=== PATIENT | female | born 1955 | race Caucasian/White ===

== ENCOUNTER 2019-10-18 07:37 | Outpatient (CLI) | payer OTHER, SELFPAY ==
--- NOTE | 2019-10-18 | ECHO_ITS ---
Patient Info Name: Deirdre Hernandez Age: 64 years : 1955 Gender: Female Ht: 66 in Wt: 155 lbs BSA: 1.82 m2 HR: 83 bpm BP: 128 / 65 mmHg Technical Quality: Good Exam Date: 10/18/2019 8:01 AM Exam Location: [facility] Patient Status: Outpatient Admit Date: 10/18/2019 Staff Ordering Physician: Nimesh Crespo MD Trapeze Artist: Lian Marshall RDCS Attending Provider: Nimesh Crespo MD Referring Physician: Zak MARQUIS; Exam Type: CA echo doppler color flow Study Info Indications R00.2 - Palpitations Complete two-dimensional, color flow and Doppler transthoracic echocardiogram is performed. Summary 1. Left ventricular systolic function is normal, estimated at 55-60%. 2. The left ventricular diastolic function is normal. 3. There is mild aortic valve sclerosis. 4. There is mild tricuspid valve regurgitation. 5. No pulmonary hypertension, estimated pulmonary arterial systolic pressure is 35 mmHg. Left Ventricle Left ventricular chamber dimension is normal. Left ventricular systolic function is normal, estimated at 55-60%. There is no increased left ventricular wall thickness. Left ventricular septal wall motion is normal. The left ventricular diastolic function is normal. Right Ventricle Right ventricular chamber dimension is normal. Right ventricular systolic function is normal. Left Atria Left atrial chamber dimension is normal. Right Atria Right atrial chamber dimension is normal. Atrial Septum Intact interatrial septum visualized by color flow imaging. Aortic Valve The aortic valve is trileaflet. There is mild aortic valve sclerosis. There is no aortic valve stenosis. There is no aortic valve regurgitation. Pulmonic Valve The pulmonic valve is normal. There is no pulmonic valve stenosis. There is no pulmonic regurgitation. Mitral Valve The mitral valve has normal leaflets. There is no mitral valve stenosis. There is no mitral valve regurgitation. Tricuspid Valve The tricuspid valve leaflets are normal. There is no significant tricuspid valve stenosis. There is mild tricuspid valve regurgitation. No pulmonary hypertension, estimated pulmonary arterial systolic pressure is 35 mmHg. Pericardium/Pleural The pericardium appears normal. There is no pericardial effusion. Inferior Vena Cava Normal inferior vena cava with >50% collapse upon inspiration consistent with normal right atrial pressure, 5 mmHg. Aorta The aortic root size at the sinus of Valsalva is normal. The prox ascending aorta size is normal. Left Ventricular Outflow Tract Name Value Normal LVOT 2D LVOT Diameter 1.9 cm LVOT Doppler LVOT Peak Gradient 5 mmHg LVOT Mean Gradient 2 mmHg LVOT VTI 22 cm LVOT VTI/AV VTI Ratio 0.8 LVOT Stroke Volume 62 ml LVOT CO 4.6 l/min LVOT CI 2.5 l/min/m2 Pulmonic Valve
== END 2019-10-18 07:38 | disposition home or self-care (01) ==
PROVIDERS: PCP Family Medicine; Visit Provider Specialist
DX: I35.1 Nonrheumatic aortic (valve) insufficiency (principal); I36.1 Nonrheumatic tricuspid (valve) insufficiency
CPT/HCPCS: 93306

== ENCOUNTER 2023-10-22 11:25 | Observation (INO) | payer OTHER, SELFPAY ==
[2023-10-22] VITALS (12 sets, daily range): BP systolic 102–145; BP diastolic 53–90; PULSE 61–150; RESP 12–20; TEMP 36.7–36.9; O2SAT 93–100; BMI 30.1
--- NOTE | 2023-10-22 | ECHO_ITS ---
Patient Info Name: Deirdre Hernandez Age: 68 years : 1955 Gender: Female Ht: 63 in Wt: 165 lbs BSA: 1.85 m2 HR: 70 bpm BP: 114 / 64 mmHg Heart Rhythm: Sinus Rhythm Technical Quality: Good Exam Date: 10/22/2023 3:12 PM Exam Location: Echo Lab Patient Status: Inpatient Admit Date: 10/22/2023 Staff Ordering Physician: Julianne Rios DO Speed Runner: Gabriel rAriaga RDCS Attending Provider: Zita Naqvi MD Referring Physician: Gabriel LARA; Exam Type: CA echo doppler color flow Study Info Indications - afib new onset Complete two-dimensional, color flow and Doppler transthoracic echocardiogram is performed. Summary 1. Left ventricular chamber dimension is normal. 2. Left ventricular systolic function is normal, estimated at 60-65%. 3. The left ventricular diastolic function is grade I diastolic dysfunction. 4. Right ventricular chamber dimension is mildly enlarged. 5. Right ventricular systolic function is normal. 6. Right atrial chamber dimension is mildly enlarged. 7. There is mild tricuspid valve regurgitation. Left Ventricle Left ventricular chamber dimension is normal. Left ventricular systolic function is normal, estimated at 60-65%. There is no increased left ventricular wall thickness. The left ventricular diastolic function is grade I diastolic dysfunction. Right Ventricle Right ventricular chamber dimension is mildly enlarged. Right ventricular systolic function is normal. Left Atria Left atrial chamber dimension is normal. Right Atria Right atrial chamber dimension is mildly enlarged. Atrial Septum Intact interatrial septum visualized by color flow imaging. Aortic Valve The aortic valve is probable trileaflet. There is no aortic valve stenosis. There is no aortic valve regurgitation. Pulmonic Valve The pulmonic valve is not well visualized. There is trace pulmonic regurgitation. Mitral Valve There is trace mitral valve regurgitation. Tricuspid Valve There is mild tricuspid valve regurgitation. Pericardium/Pleural There is no pericardial effusion. Inferior Vena Cava Normal inferior vena cava with >50% collapse upon inspiration consistent with normal right atrial pressure, 3 mmHg. Aorta The aortic root size at the sinus of Valsalva is normal. Left Ventricular Outflow Tract Name Value Normal LVOT 2D LVOT Diameter 1.9 cm LVOT Doppler LVOT Peak Gradient 5 mmHg LVOT Mean Gradient 3 mmHg LVOT VTI 23 cm LVOT VTI/AV VTI Ratio 0.8 LVOT Stroke Volume 66 ml LVOT CO 4.3 l/min LVOT CI 2.3 l/min/m2 Pulmonic Valve Name Value Normal PV Doppler PV Peak Gradient 3 mmHg PV Regurgitation Doppler NV Pe
--- NOTE | ~2023-10-22 | XR_ITS ---
EXAMINATION: XR chest 2V 10/22/2023 12:18 INDICATION: Heart palpitations for 2 days PROCEDURE: Two-view chest COMPARISON: No prior studies for comparison. FINDINGS: The lungs are clear. The lungs are hyperinflated which is consistent with, but not diagnost ic of chronic obstructive pulmonary disease. The cardiomediastinal silhouette is within normal limits . There are no pleural effusions. There is no pneumothorax suspected. IMPRESSION: 1: NO ACUTE CARDIOPULMONARY DISEASE. Reviewed, dictated and finalized at location B.
--- NOTE | 2023-10-22 11:29 | ECG_ITS ---
Test Date: 2023-10-22 11:34:17 Measurements Intervals [place] Rate: 136 P: 0 MT: 0 QRS: 27 QRSD: 79 T: 46 QT: 291 QTc: 438 Interpretive Statements ATRIAL FIBRILLATION WITH RAPID VENTRICULAR RESPONSE BORDERLINE ST ABNORMALITY- ANTEROLAT/HIGH LAT LEADS BASELINE ARTIFACT- II, III, AVR, AVF ABNORMAL ECG No previous ECG available for comparison Electronically Signed On 10-22-2023 13:12:15 CDT by Silvino Hernandez D.O.
[2023-10-22 11:53] LABS: Basophils Absolute Auto 0.1 K/mm3 (0.0-0.1); Basophils Percent Auto 0.6 % (0.2-1.2); Eosinophils Absolute Auto 0.1 K/mm3 (0-0.3); Eosinophils Percent Auto 1.6 % (0-4.4); Hemoglobin 14.6 g/dL (12.0-15.0); Immature Granulocyte Absolute 0.02 K/mm3 (0.00-0.031); Immature Granulocyte Percent A 0.3 % (0-0.5); Lymphocytes Absolute Auto 3.48 K/mm3 (0.9-3.2); Lymphocytes Percent Auto 43.6 % (18.3-44.2); Mean Corpuscular HGB Conc 33.2 g/dl (32-36); Mean Corpuscular Hemoglobin 29.6 pg (26-34); Mean Corpuscular Volume 89.1 fl (80-100); Mean Platelet Volume 8.9 fl (7.4-10.4); Monocytes Absolute Auto 0.6 K/mm3 (0.1-0.6); Monocytes Percent Auto 7.3 % (2.6-8.5); Neutrophils Absolute Auto 3.7 K/mm3 (1.3-6.7); Neutrophils Percent Auto 46.6 % (45.5-73.1); Platelet Count Result 307 k/mm3 (150-375); Red Blood Count 4.94 M/mm3 (4.2-5.4); Red Cell Distribution Width 13.4 % (11.5-14.5)
[2023-10-22 12:03] LABS: Alanine Aminotransferase 18 U/L (6-35); Albumin Level 4.4 g/dL (3.5-5.1); Alkaline Phosphatase 54 U/L (38-126); Anion Gap 12 mmol/L (4-12); Aspartate Amino Transferase 28 U/L (14-36); Bilirubin,Total 0.5 mg/dL (0.2-1.3); Blood Urea Nitrogen 16 mg/dL (7-17); Calcium 9.7 mg/dL (8.4-10.2); Carbon Dioxide 26 mmol/L (22-30); Chloride 102 mmol/L (98-107); Estimated CRCL calculation 62 ml/min; Estimated Glomerular Filt Rate > 60; Glucose 98 mg/dL (65-110); Lipase 117 U/L (23-300); Potassium 3.8 mmol/L (3.4-5.0); Sodium 140 mmol/L (137-145)
--- NOTE | 2023-10-22 12:06 | ED.ARRPALP ---
HPI - Arrhythmia/Palpitations General Chief Complaint: Arrhythmia/Palpitations Stated Complaint: heart palpitations x 1 week Time Seen by Provider: 10/22/23 11:37 History of Present Illness HPI narrative: Pt presents with intermittent palpaitaions for the last few days. Pt has had these off and on for years and has been on Holter monitors and has seen Dr Vazquez but never saw anything abnormal. Pt says the palpitations have been more constant the last few days. Pt denies CP or SOB. Pt has no documented history of a fib. Related Data Home Medications Medication Instructions Recorded Confirmed acetaminophen 500 mg tablet 1,000 mg PO Q6H PRN Pain (Scale 10/22/23 10/22/23 (Acetaminophen Extra Strength) Score 1-3) aspirin 81 mg chewable tablet 81 mg PO DAILY 10/22/23 10/22/23 ibuprofen 200 mg tablet 400 mg PO Q6H PRN Pain (Scale 10/22/23 10/22/23 Score 1-3) lidocaine 5 % topical patch 1 patch DAILY 10/22/23 10/22/23 omega-3 fatty acids PO 10/22/23 Allergies Allergy/AdvReac Type Severity Reaction Status Date / Time codeine AdvReac Mild NAUSEA Verified 10/22/23 12:50 Review of Systems Review of Systems: All systems reviewed & are unremarkable except as noted in HPI and below PMFSH Family History Family History (Updated 10/22/23 @ 16:31 by Cynthia Eddy RN) Father Heart attack Social History Social History Smoking status: Never smoker Alcohol intake: never Substance use: never Do You Feel Safe in your Home?: Yes Lack of Transportation: No Lack of Food: Never True Current Housing: I Have Housing Concerned About Future Housing: No Difficulty Paying Gas/Electric Bills: No Difficulty Paying for Meds: No Currently Unemployed: No Education: Bachelor's Degree Difficulty w/ Childcare or Family Care: No Spiritual care concerns: No Exam Const: General: healthy appearing, no acute distress and alert Nutritional Appearance: well nourished Orientation/consciousness: patient oriented x3 Limitations: no limitations HENMT: Head: normal to inspection Resp: Effort & Inspection: normal respiratory effort Auscultation: clear to auscultation bilaterally Cardio: Rate: tachycardic Rhythm: abnormal rhythm Skin: General skin exam: normal color Rashes: no rashes Wounds: no wounds Neuro: General: patient oriented x3, moves all extremities, no meningeal signs, no focal motor deficits and CN's II-XI intact bilaterally Speech: normal speech Extrem: General: normal to inspection, no clubbing, cyanosis or edema and no pedal edema Psych: Mental Status: mental status grossly normal Affect: normal affect Attitude: cooperative Course Vital Signs Vital signs: Vital Signs Temperature 98.4 F 10/22/23 11:30 Pulse Rate 146 H 10/22/23 11:30 Respiratory Rate 20 10/22/23 11:30 Blood Pressure 145/90 H 10/22/23 11:30 Pulse Oximetry 96 10/22/23 11:30 Oxygen Delivery Room Air 10/22/23 11:30 Temperature 98.1 F 10/22/23 16:00 Pulse Rate 61 10/22/23 16:00 Respiratory Rate 12 10/22/23 16:00 Blood Pressure 118/82 10/22/23 16:00 Pulse Oximetry 96 10/22/23 16:00 Oxygen Delivery Room Air 10/22/23 11:30 MDM - Arrhythmia/Palpitations MDM Narrative Medical decision making narrative: Pt presents with intermittent palpitations for years but more persistent last few days. Pt denies CP. Pt in A fib with rvr will treat rate with cardizem and check trop and labs and admit will give dose of lovenox here as well. Pt rate slowed. discussed with Estefani Keating agrees to admit to IMU. Pt converted to nsr. called Estefani and said to move to med tele and stop cardizzem drip and give po cardizem Differential Diagnosis Differential diagnosis: Likely palpitations, anxiety, artial fibrillation, artial flutter, ventricular premature beats and supraventricular tachycardia Lab Data 10/22/23 11:39 10/22/23 11:39 Labs: Lab Results 10/22/23
[2023-10-22 12:07] LABS: INR 0.9; Prothrombin Time 12.5 Seconds (11.1-14.7)
[2023-10-22 12:08] LABS: Partial Thromboplastin Time 27.4 Seconds (22.3-36.8)
[2023-10-22 12:15] LABS: Troponin I < 0.012 ng/mL (0.000-0.034)
[2023-10-22] MEDS: dilTIAZem 100 MG/100 ML 100 MG/100 ML BAG IV CONT (12:20)
[2023-10-22] MEDS: dilTIAZem HCl INJ 25 MG/5 ML VIAL 20 MG IV PUSH (12:21)
[2023-10-22] MEDS: ENOXAPARIN 80 MG/0.8 ML SYRINGE SUB-Q (12:21)
[2023-10-22] MEDS: ASPIRIN 81 MG CHEWABLE TABLET 324 MG PO (12:21)
--- NOTE | 2023-10-22 13:08 | ECG_ITS ---
Test Date: 2023-10-22 13:16:23 Measurements Intervals [place] Rate: 72 P: 18 WI: 143 QRS: 5 QRSD: 89 T: 23 QT: 397 QTc: 435 Interpretive Statements SINUS RHYTHM VOLTAGE CRITERIA FOR LVH CONSIDER INFERIOR INFARCT, AGE INDETERMINATE ABNORMAL ECG Compared to ECG 10/22/2023 11:34:17 Atrial fibrillation no longer present Electronically Signed On 10-22-2023 13:29:34 CDT by Silvino Hernandez D.O.
[2023-10-22 14:50] LABS: Troponin I < 0.012 ng/mL (0.000-0.034)
--- NOTE | 2023-10-22 16:11 | ADMGEN ---
This patient, Dierdre Hernandez, was admitted to Medical Room 256-. Patient/family oriented to hospital policies and general routines including ID bracelet, bed and alarms, visiting hours, pain management, procedures, bathroom and other care routines, personal items, smoking policy, room service/diet, and visiting hours. Information on how to activate the Rapid Response Team has been discussed. Patient/Family are encouraged to report perceived risks to care and to ask questions if they do not understand what they are told or what they should do.
[2023-10-22] MEDS: dilTIAZem HCL 30 MG TABLET PO ×2 (16:18→21:05)
--- NOTE | 2023-10-22 16:41 | PM.IMHP ---
H&P: HPI History of Present Illness Date/Time: 10/22/23 16:40 Chief Complaint: Palpitations. Narrative: This is a very pleasant and previously healthy 68-year-old female who presented to the emergency department via private vehicle for evaluation of palpitations. The patient provides the following history. She reports intermittent palpitations for at least 4 years and she has worn event monitors which were unrevealing. These episodes have become increasingly more frequent the last several days and they are lasting longer and longer each time before resolving without intervention. Yesterday she developed sweats with the palpitations and today she had felt a bit short of breath with exertion. She does not see a pattern as to when these episodes occur and denies that they occur at nighttime. She denies caffeine and alcohol use. She has no known history of thyroid disease or sleep apnea. She has had stress tests before (her father from an [place] at 41) which were normal. However they have all been unremarkable. She denies syncope, near syncope, exertional chest pain, pleuritic pain, orthopnea, paroxysmal nocturnal dyspnea, edema, nausea, and vomiting. No recent illnesses. In the ED: She was and rapid atrial fibrillation on arrival with rates in the 130s. EKG showed borderline ST T-wave abnormalities in the anterolateral and high lateral leads. She was started on a diltiazem drip and converted to a normal sinus rhythm. She was given a dose of p.o. diltiazem and is being admitted overnight for close monitoring and Cardiology consultation. Review of Systems Review of Systems: 12 systems were reviewed and are negative except for as per HPI. [facility] Past Medical History Medical History (Updated 10/22/23 @ 22:39 by Estefani Fitzgerald PA-C) COVID-19 Surgical History Surgical History (Updated 10/22/23 @ 22:39 by Estefani Fitzgerald PA-C) History of section History of tonsillectomy Family History Family History (Updated 10/22/23 @ 22:39 by Estefani Fitzgerald PA-C) Father , at the age of 41 from an [place]. Myocardial infarction Social History Social History (Updated 10/22/23 @ 22:40 by Estefani Fitzgerald PA-C) Social History: Surrogate medical decision maker: Ruben Hernandez, son. Code status: Full code. Smoking status: Never smoker Alcohol intake: never Substance use: never Do You Feel Safe in your Home?: Yes Lack of Transportation: No Lack of Food: Never True Current Housing: I Have Housing Concerned About Future Housing: No Difficulty Paying Gas/Electric Bills: No Difficulty Paying for Meds: No Currently Unemployed: No Education: Bachelor's Degree Difficulty w/ Childcare or Family Care: No Additional living arrangements comments: The patient lives in [place]. She has 2 daughters and 1 son who are healthy. 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 Spiritual care concerns: No Meds Home Medications and Allergies Home Medications Medication Instructions Recorded Confirmed Type acetaminophen 500 mg tablet 1,000 mg PO Q6H PRN Pain (Scale 10/22/23 10/22/23 History (Acetaminophen Extra Strength) Score 1-3) aspirin 81 mg chewable tablet 81 mg PO DAILY 10/22/23 10/22/23 History ibuprofen 200 mg tablet 400 mg PO Q6H PRN Pain (Scale 10/22/23 10/22/23 History Score 1-3) lidocaine 5 % topical patch 1 patch DAILY 10/22/23 10/22/23 History omega-3 fatty acids PO 10/22/23 History Allergies Allergy/AdvReac Type Severity Reaction Status Date / Time codeine AdvReac Mild NAUSEA Verified 10/22/23 12:50 Vital Signs Vital Signs - 24 hr 10/22/23 11:30 10/22/23 11:30 10/22/23 12:20 Temperature 98.4 F Pulse Rate 146 H 150 H Respiratory Rate 20 Blood Pressure 145/90 H 127/72 Pulse Oximetry 96 Oxygen Delivery Room Air Room Air 10/22/23 11:46 10/22/23 12:01 10/22/23 12:33 Temperature Pulse Rate 135 H 124 H 96 Respiratory Rate 2
[2023-10-22 17:39] LABS: Troponin I < 0.012 ng/mL (0.000-0.034)
[2023-10-23 00:04] VITALS: PULSE 65
[2023-10-23 04:00] VITALS: PULSE 66
[2023-10-23 05:42] VITALS: O2SAT 94
[2023-10-23 06:02] LABS: Anion Gap 8 mmol/L (4-12); Blood Urea Nitrogen 13 mg/dL (7-17); Calcium 9.3 mg/dL (8.4-10.2); Carbon Dioxide 27 mmol/L (22-30); Chloride 105 mmol/L (98-107); Cholesterol 209 mg/dL (0-200); Estimated CRCL calculation 56 ml/min; Estimated Glomerular Filt Rate > 60; Glucose 91 mg/dL (65-110); HDL Direct 70 mg/dL; Magnesium 2.1 mg/dL (1.6-2.3); Potassium 3.9 mmol/L (3.4-5.0); Sodium 140 mmol/L (137-145); Triglycerides 110 mg/dL (<150)
[2023-10-23] MEDS: dilTIAZem HCL 30 MG TABLET PO (06:05)
[2023-10-23 06:13] LABS: LDL Cholesterol Direct 100 mg/dL
[2023-10-23 06:24] VITALS: BP 122/64; PULSE 65; RESP 14; TEMP 36.5; O2SAT 94
--- NOTE | 2023-10-23 07:14 | PM.IMPN ---
Progress Note: A&P Assessment and Plan (1) Atrial fibrillation with rapid ventricular response: Code(s): I48.91 - Unspecified atrial fibrillation Status: Acute Assessment and Plan: Patient reports of palpitations. EKG showed A-Fib with rapid ventricular response with a rate of 136. Patient was started on a diltiazem drip and converted to normal sinus rhythm. -diltiazem 30 mg p.o. q.8 hours -vital signs reviewed -echocardiogram ordered -telemetry -ApneaLink ordered -[id number] score 2 for age and gender. Will need oral anticoagulation. -cardiology consult, recs appreciated Plan Feeding: Heart healthy diet Analgesia: Tylenol Thromboembolic prophylaxis: Lovenox Disposition: Patient presented with palpitations and was found to be in AFib with RVR. She was started on diltiazem drip which has now been discontinued as she transition to normal sinus rhythm. Cardiology has been consulted, echo has been ordered. Patient is from home anticipate her discharging back when she is medically stable. Advance Care Plan I have confirmed that the patient's Advanced Care Plan is present, code status is documented, or surrogate decision maker is listed in patient medical record.: Yes Medication Reconciliation I have utilized all available resources to obtain, update and review the patients current medications (includes all prescriptions, OTC, herbals, cannabis, and nutritional supplements).: Yes Subjective Date/time seen: 10/23/23 07:14 Interval history: This is a very pleasant and previously healthy 68-year-old female who presented to the emergency department via private vehicle for evaluation of palpitations. 10/22: Review of Systems Review of Systems: All systems reviewed & are unremarkable except as noted in HPI and below Exam Narrative: General: well appearing, appears stated age. HEENT: normocephalic, atraumatic. Mucous membranes moist. EOMI, PERRLA, bilateral sclera anicteric, no conjunctival injection. Neck supple without JVD, lymphadenopathy, or bruit. Respiratory: clear to ascultation bilaterally. No rales/rhonic/wheezes. Cardiovascular: Regular rate and rhythm, normal S1-S2 upon ascultation. No murmurs, rubs, or clicks. PMI is nondisplaced, capillary refill less than 3 second. Abdomen: Soft, round, no pulsatile masses, nondistended and nontender. No rebound, no guarding. No CVA tenderness, no hepatosplenomegaly. Bowel sounds present to all four quadrants. No high pitch or tinkling sounds, resonant to percussion. Extremities: No cyanosis, clubbing, or edema present. Pulses are palpable 2/2. Active ROM to all four extremities. Neuro: Alert and orientated x 4. PERRLA. Cranial nerves 2-12 intact without focal deficit. Skin: Warm, dry, and intact, without rash, erythema, or lesion. Lines: Incisions: Psych: pleasant, cooperative, normal speech, normal affect, no hallucinations, no dysarthia Objective Data Vital Signs Vital Signs: Vital Signs - 24 hr 10/22/23 11:30 10/22/23 11:30 10/22/23 12:20 Temperature 98.4 F Pulse Rate 146 H 150 H Respiratory Rate 20 Blood Pressure 145/90 H 127/72 Pulse Oximetry 96 Oxygen Delivery Room Air Room Air 10/22/23 11:46 10/22/23 12:01 10/22/23 12:33 Temperature Pulse Rate 135 H 124 H 96 Respiratory Rate 20 19 18 Blood Pressure 127/90 120/70 110/69 Pulse Oximetry 93 97 97 Oxygen Delivery 10/22/23 12:46 10/22/23 13:09 10/22/23 15:00 Temperature Pulse Rate 75 70 64 Respiratory Rate 16 18 Blood Pressure 108/58 L 114/64 107/55 L Pulse Oximetry 97 94 Oxygen Delivery 10/22/23 15:10 10/22/23 16:00 10/22/23 19:37 Temperature 98.1 F Pulse Rate 76 61 Respiratory Rate 16 12 Blood Pressure 102/53 L 118/82 Pulse Oximetry 100 96 Oxygen Delivery Room Air 10/22/23 20:40 10/22/23 20:00 10/22/23 20:00 Temperature 98.2 F Pulse Rate 67 67 69 Respiratory Rate 14 14 Blood Pressure 121/56 L Pulse Ox
[2023-10-23 08:00] VITALS: PULSE 68
[2023-10-23] MEDS: LIDOCAINE 5% PATCH 1 PATCH TOPICAL (09:02)
[2023-10-23] MEDS: ASPIRIN 81 MG CHEWABLE TABLET PO (09:02)
--- NOTE | 2023-10-23 09:57 | PM.CNCAR ---
Assessment and Plan Assessment and plan (1) Atrial fibrillation with rapid ventricular response: Code(s): I48.91 - Unspecified atrial fibrillation Status: Acute Assessment and Plan: TSH level is normal. Echocardiogram with preserved LVEF. Continue with PO Diltiazem. Recommend long-acting Diltiazem 120mg once daily upon discharge. [id number] is 2 for age and gender. As [id number] is not 3 yet, she does not need anticoagulation for stroke risk reduction. She will need to start anticoagulation once her [id number] turns 3. Recommend outpatient sleep study. Further discussions regarding long-term management of her paroxysmal atrial fibrillation to be done outpatient with her primary Director Sports, Dr. Crespo. She has an appointment to see him next week. Okay to discharge home from my standpoint. Recommendations and plan discussed with Hospitalist. History of Present Illness History of Present Illness Consult date/time: 10/23/23 09:57 Requesting physician: Estefani Fitzgerald PA-C Consult reason: atrial fibrillation Reason For Visit: A Fib RVR Narrative: We are consulted for atrial fibrillation with RVR. This is a 68 year old female patient of Dr. Crespo's who has been having palpitation for the past few days. Had palpitations on Friday, but then felt better in the evening, however, had recurrence on Friday, which prompted her to come to the ED. In the ED, initial EKG showed atrial fibrillation with RVR. She was given Diltiazem 20mg IV and subsequently returned to normal sinus rhythm. Her symptoms have resolved since being in normal sinus rhythm. She was admitted for further management. This morning, she is feeling well and remains in sinus rhythm. She was started on PO Diltazem on admission. Review of Systems Review of Systems: All systems reviewed & are unremarkable except as noted in HPI and below (HPI) [facility] Past Medical History Medical History COVID-19 Surgical History Surgical History History of section History of tonsillectomy Family History Family History Father , at the age of 41 from an [place]. Myocardial infarction Social History Social History Social History: Surrogate medical decision maker: Ruben Hernandez, son. Code status: Full code. Smoking status: Never smoker Alcohol intake: never Substance use: never Do You Feel Safe in your Home?: Yes Lack of Transportation: No Lack of Food: Never True Current Housing: I Have Housing Concerned About Future Housing: No Difficulty Paying Gas/Electric Bills: No Difficulty Paying for Meds: No Currently Unemployed: No Education: Bachelor's Degree Difficulty w/ Childcare or Family Care: No Additional living arrangements comments: The patient lives in [place]. She has 2 daughters and 1 son who are healthy. 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 Spiritual care concerns: No Meds Home Medications and Allergies Home Medications Medication Instructions Recorded Confirmed Type acetaminophen 500 mg tablet 1,000 mg PO Q6H PRN Pain (Scale 10/22/23 10/22/23 History (Acetaminophen Extra Strength) Score 1-3) aspirin 81 mg chewable tablet 81 mg PO DAILY 10/22/23 10/22/23 History ibuprofen 200 mg tablet 400 mg PO Q6H PRN Pain (Scale 10/22/23 10/22/23 History Score 1-3) lidocaine 5 % topical patch 1 patch DAILY 10/22/23 10/22/23 History omega-3 fatty acids PO 10/22/23 History Allergies Allergy/AdvReac Type Severity Reaction Status Date / Time codeine AdvReac Mild NAUSEA Verified 10/22/23 12:50 Vital Signs Vital Signs - 24 hr 10/22/23 11:30 10/22/23 11:30 10/22/23 12:20 Temperature 36.9 C Pulse Rate 146 H 150 H Respiratory Rate 20 Blood Pressure
[2023-10-23 12:00] VITALS: PULSE 75
--- NOTE | 2023-10-23 12:55 | PM.DS ---
DS: Admitting Diagnosis Discharge Date 10/22 Admitting Diagnosis heart palpatations DS: Discharge Diagnosis Discharge Diagnosis (1) Atrial fibrillation with rapid ventricular response: Code(s): I48.91 - Unspecified atrial fibrillation Status: Acute Assessment and Plan: Patient reports of palpitations. EKG showed A-Fib with rapid ventricular response with a rate of 136. Patient was started on a diltiazem drip and converted to normal sinus rhythm. -diltiazem 30 mg p.o. q.8 hours -vital signs reviewed -echocardiogram ordered -telemetry -ApneaLink ordered -[id number] score 2 for age and gender. Will need oral anticoagulation. -cardiology consult, recs appreciated Plan Feeding: Heart healthy diet Analgesia: Tylenol Thromboembolic prophylaxis: Lovenox Disposition: Patient presented with palpitations and was found to be in AFib with RVR. She was started on diltiazem drip which has now been discontinued as she transition to normal sinus rhythm. Cardiology has been consulted, echo has been ordered. Patient is from home anticipate her discharging back when she is medically stable. Advance Care Plan I have confirmed that the patient's Advanced Care Plan is present, code status is documented, or surrogate decision maker is listed in patient medical record.: Yes Medication Reconciliation I have utilized all available resources to obtain, update and review the patients current medications (includes all prescriptions, OTC, herbals, cannabis, and nutritional supplements).: Yes DS: Summary Hospital Course Reason for hospitalization: atrial fibrillation Hospital Course: This is a very pleasant and previously healthy 68-year-old female who presented to the emergency department via private vehicle for evaluation of palpitations. On admission to the ER she was found to be in atrial fibrillation with the rapid ventricular response rate of 136 bpm. She was started on a diltiazem drip and rate converted. Cardiology saw her and recommended starting diltiazem 120 mg controlled release daily. Echocardiogram was reviewed. Chest x-ray was normal. She remained normal sinus rhythm on the monitor. Overall she did well and was stable to discharge home with outpatient follow-up. Time Spent with Patient Time attestation: Total time spent providing and/or coordinating discharge services:54 Exam Narrative: General: well appearing, appears stated age. HEENT: normocephalic, atraumatic. Mucous membranes moist. EOMI, PERRLA, bilateral sclera anicteric, no conjunctival injection. Neck supple without JVD, lymphadenopathy, or bruit. Respiratory: clear to auscultation bilaterally. No rales/rhonic/wheezes. Cardiovascular: Regular rate and rhythm, normal S1-S2 upon auscultation. No murmurs, rubs, or clicks. PMI is nondisplaced, capillary refill less than 3 second. Abdomen: Soft, round, no pulsatile masses, nondistended and nontender. No rebound, no guarding. No CVA tenderness, no hepatosplenomegaly. Bowel sounds present to all four quadrants. No high pitch or tinkling sounds, resonant to percussion. Extremities: No cyanosis, clubbing, or edema present. Pulses are palpable 2/2. Active ROM to all four extremities. Neuro: Alert and orientated x 4. PERRLA. Cranial nerves 2-12 intact without focal deficit. Skin: Warm, dry, and intact, without rash, erythema, or lesion. Lines: Incisions: Psych: pleasant, cooperative, normal speech, normal affect, no hallucinations, no dysarthria DS: Data Data Completed and Pending Labs on day of discharge: Labs from last 24 hours 10/23/23 10/22/23 10/22/23 05:41 17:13 14:20 Sodium 140 Potassium 3.9 Chloride 105 Carbon Dioxide 27 Anion Gap 8 BUN 13 Creatinine 0.80 Estim Creat Clear Calc 56 Estimated GFR > 60 Glucose 91 Calcium 9.3 Magnesium 2.1 Troponin I < 0.012 < 0.012 Triglycerides 110 Cholesterol 209 H LDL Cholesterol D
[2023-10-23] MEDS: dilTIAZem HCL CD 120 MG CAP.24HR PO (13:11)
== END 2023-10-23 13:30 | disposition home or self-care (01) ==
LOC: ANHED 12:08 → ANH2MED 15:48
PROVIDERS: Physician Assistant; Admitting Provider General Practice; Emergency Provider Emergency Medicine; PCP Family Medicine; Visit Provider Nurse Practitioner Acute Care
DX: I48.91 Unspecified atrial fibrillation (principal); Z79.82 Long term (current) use of aspirin
CPT/HCPCS: 36415; 71046; 80048; 80053; 80061; 83690; 83735; 83880; 84443; 84484; 85025; 85610; 85730; 93005; 93306; 94762; 96365; 96366; 96372; 96374; 99284; 99285; A9270; G0378; J1650

== ENCOUNTER 2023-10-23 19:36 | Emergency (ER) | payer OTHER, SELFPAY ==
[2023-10-23] VITALS (10 sets, daily range): BP systolic 100–130; BP diastolic 52–74; PULSE 75–132; RESP 13–21; TEMP 36.9; O2SAT 95–97
--- NOTE | ~2023-10-23 | XR_ITS ---
XR chest 2V DATE: 10/23/2023 20:02 INDICATION: Palpitations TECHNIQUE: PA and lateral views COMPARISON: 10/22/2023 PA and lateral chest FINDINGS: Borderline heart size. No hilar or mediastinal enlargement. Moderate bilateral hyperinflation suggesting obstructive airways disease. No pulmonary infiltrate or consolidation, pleural effusion or pulmonary vascular congestion or pneumo thorax. Diffuse osteopenia. Kyphodextroscoliosis of the thoracic spine. IMPRESSION: Bilateral hyperinflation; otherwise no active pulmonary disease Borderline heart size Reviewed, dictated and finalized at location J.
--- NOTE | 2023-10-23 19:40 | ECG_ITS ---
Test Date: 2023-10-23 19:48:01 Measurements Intervals [place] Rate: 99 P: 0 IN: 0 QRS: 5 QRSD: 84 T: 25 QT: 335 QTc: 431 Interpretive Statements ATRIAL FIBRILLATION VOLTAGE CRITERIA FOR LVH CONSIDER INFERIOR INFARCT, AGE INDETERMINATE ABNORMAL ECG Compared to ECG 10/22/2023 13:16:23 ATRIAL FIBRILLATION NOW PRESENT Electronically Signed On 10-23-2023 20:20:08 CDT by Silvino Hernandez D.O.
[2023-10-23 20:00] LABS: Basophils Absolute Auto 0.1 K/mm3 (0.0-0.1); Basophils Percent Auto 0.9 % (0.2-1.2); Eosinophils Absolute Auto 0.2 K/mm3 (0-0.3); Eosinophils Percent Auto 2.6 % (0-4.4); Hematocrit 43.5 % (37.0-47.0); Hemoglobin 14.6 g/dL (12.0-15.0); Immature Granulocyte Absolute 0.02 K/mm3 (0.00-0.031); Immature Granulocyte Percent A 0.3 % (0-0.5); Lymphocytes Absolute Auto 2.09 K/mm3 (0.9-3.2); Lymphocytes Percent Auto 31.4 % (18.3-44.2); Mean Corpuscular HGB Conc 33.6 g/dl (32-36); Mean Corpuscular Volume 89.3 fl (80-100); Mean Platelet Volume 8.8 fl (7.4-10.4); Monocytes Absolute Auto 0.6 K/mm3 (0.1-0.6); Monocytes Percent Auto 8.4 % (2.6-8.5); Neutrophils Absolute Auto 3.8 K/mm3 (1.3-6.7); Neutrophils Percent Auto 56.4 % (45.5-73.1); Platelet Count Result 284 k/mm3 (150-375); Red Blood Count 4.87 M/mm3 (4.2-5.4); Red Cell Distribution Width 13.4 % (11.5-14.5); White Blood Count 6.7 K/mm3 (4.5-10.0)
[2023-10-23 20:08] LABS: INR 0.9; Prothrombin Time 12.7 Seconds (11.1-14.7)
[2023-10-23 20:09] LABS: Partial Thromboplastin Time 26.3 Seconds (22.3-36.8)
--- NOTE | 2023-10-23 20:26 | ED.ARRPALP ---
HPI - Arrhythmia/Palpitations General Chief Complaint: Arrhythmia/Palpitations Stated Complaint: AFIB-RVR Time Seen by Provider: 10/23/23 20:09 Source: patient and EMS Mode of arrival: EMS Limitations: no limitations History of Present Illness HPI narrative: Patient presents with report of palpitations. They have been occurring for 4 years intermittently and she has been following with Dr. Zavaleta but symptoms occurred yesterday and she was found to be in atrial fibrillation with rapid ventricular response at this hospital for which she was admitted. This was a new diagnosis of atrial fibrillation. She was discharged from the hospital today with a new diagnosis of atrial fibrillation and started on diltiazem. She states she was not placed on anticoagulation because she was a risk score of 2 and was told anticoagulation was not indicated unless she was risk score of 3. She was given a dose of her diltiazem at approximately noon just prior to discharge and told she could wait to take her next dose tomorrow morning. 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 She admits that she did not call the recycle driver to see if she could take a dose early. Rather, when she was experiencing palpitations but did not richard and that were associated with mild shortness of breath she called EMS. She denies any chest pain or lower extremity edema. EMS did note that she was in atrial fibrillation with rapid ventricular rate between 140 and 160 and hemodynamically stable with a blood pressure of systolic 140. Thus medical control over radio did advise that 5 mg metoprolol could be given slow push IV over 2 minutes. She feels nauseated and somewhat weak. Related Data Home Medications Medication Instructions Recorded Confirmed acetaminophen 500 mg tablet 1,000 mg PO Q6H PRN Pain (Scale 10/22/23 10/22/23 (Acetaminophen Extra Strength) Score 1-3) aspirin 81 mg chewable tablet 81 mg PO DAILY 10/22/23 10/22/23 ibuprofen 200 mg tablet 400 mg PO Q6H PRN Pain (Scale 10/22/23 10/22/23 Score 1-3) lidocaine 5 % topical patch 1 patch DAILY 10/22/23 10/22/23 omega-3 fatty acids PO 10/22/23 Allergies Allergy/AdvReac Type Severity Reaction Status Date / Time codeine AdvReac Mild NAUSEA Verified 10/22/23 12:50 [facility] Past Medical History Medical History (Updated 10/24/23 @ 00:00 by Background Daemon) Atrial fibrillation Dx 10/22/23 COVID-19 Surgical History Surgical History History of section History of tonsillectomy Family History Family History Father , at the age of 41 from an [place]. Myocardial infarction Social History Social History Social History: Surrogate medical decision maker: Ruben Hernandez, son. Code status: Full code. Smoking status: Never smoker Alcohol intake: never Substance use: never Do You Feel Safe in your Home?: Yes Lack of Transportation: No Lack of Food: Never True Current Housing: I Have Housing Concerned About Future Housing: No Difficulty Paying Gas/Electric Bills: No Difficulty Paying for Meds: No Currently Unemployed: No Education: Bachelor's Degree Difficulty w/ Childcare or Family Care: No Additional living arrangements comments: The patient lives in [place]. She has 2 daughters and 1 son who are healthy. 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 Spiritual care concerns: No Exam Narrative: GENERAL: Well-appearing, well-nourished, and in no acute distress. HEAD: Normocephalic, atraumatic. EYES: Non injected, non icteric ENT: Nares clear, no rhinorrhea or epistaxis. NECK: Supple. CHEST: Speaking in full sentences. No respiratory distress. Lungs clear to auscultation bilaterally. HEART: Irregularly IRRegular rate and rhythm, palpable at left radial and on auscultation. ABDOM
[2023-10-23 20:30] LABS: Albumin Level 4.4 g/dL (3.5-5.1); Alkaline Phosphatase 52 U/L (38-126); Aspartate Amino Transferase 27 U/L (14-36); Bilirubin,Total 0.4 mg/dL (0.2-1.3); Blood Urea Nitrogen 18 mg/dL (7-17); Carbon Dioxide 25 mmol/L (22-30); Estimated CRCL calculation 63 ml/min; Estimated Glomerular Filt Rate > 60; Glucose 126 mg/dL (65-110)
[2023-10-23 20:31] LABS: Alanine Aminotransferase 17 U/L (6-35); Anion Gap 10 mmol/L (4-12); Calcium 9.3 mg/dL (8.4-10.2); Chloride 105 mmol/L (98-107); Lipase 119 U/L (23-300); Potassium 3.6 mmol/L (3.4-5.0); Sodium 140 mmol/L (137-145)
[2023-10-23 20:34] LABS: Troponin I < 0.012 ng/mL (0.000-0.034)
[2023-10-23] MEDS: dilTIAZem HCl INJ 25 MG/5 ML VIAL 20 MG IV PUSH (20:56)
[2023-10-23 21:16] LABS: NT Pro B Type Natriuretic Pept 203 pg/mL (19.9-100)
== END 2023-10-23 22:35 | disposition home or self-care (01) ==
PROVIDERS: Emergency Provider Student in an Organized Health Care Education/Training Program; PCP Family Medicine
DX: I48.91 Unspecified atrial fibrillation (principal)
CPT/HCPCS: 36415; 71046; 80053; 83690; 83735; 83880; 84484; 85025; 85610; 85730; 93005; 96374; 99284

== ENCOUNTER 2023-10-29 18:18 | Observation (INO) | payer OTHER, SELFPAY ==
[2023-10-29] VITALS (14 sets, daily range): BP systolic 84–132; BP diastolic 53–72; PULSE 78–140; RESP 16–23; TEMP 36.3–36.6; O2SAT 93–100; BMI 29.4
--- NOTE | ~2023-10-29 | XR_ITS ---
EXAMINATION: XR chest 2V DATE: 10/29/2023 19:03 INDICATION: Heart palpitations TECHNIQUE: PA and lateral views of the chest were obtained. COMPARISON: Chest radiograph dated 10/23/2023 FINDINGS: Mild hyperexpansion of the lungs. Unchanged curvilinear atelectasis/scarring at the posterior left katina ng base. No new airspace opacities, pulmonary edema, pleural effusion or pneumothorax. The cardiomedi astinal silhouette is normal. Thoracolumbar dextrocurvature with moderate spondylosis. IMPRESSION: 1. Unchanged curvilinear atelectasis/scarring at the posterior left lung base. Reviewed, dictated and finalized at location A.
--- NOTE | 2023-10-29 18:19 | ECG_ITS ---
Test Date: 2023-10-29 18:26:05 Measurements Intervals [place] Rate: 144 P: 0 NE: 0 QRS: 9 QRSD: 78 T: 32 QT: 286 QTc: 443 Interpretive Statements ATRIAL FIBRILLATION WITH RAPID VENTRICULAR RESPONSE VOLTAGE CRITERIA FOR LVH BORDERLINE ST ABNORMALITY- LATERAL LEADS BASELINE ARTIFACT- I, II, III, AVR, AVL, AVF ABNORMAL ECG Compared to ECG 10/23/2023 19:48:01 HEART RATE HAS INCREASED Electronically Signed On 10-29-2023 20:29:07 CDT by Silvino Hernandez D.O.
--- NOTE | 2023-10-29 18:44 | ED.ARRPALP ---
HPI - Arrhythmia/Palpitations General Chief Complaint: Arrhythmia/Palpitations <Silver Calderón PA-C - Last Filed: 10/29/23 23:35> Stated Complaint: heart palpitations <FELIX Odell Last Filed: 10/29/23 23:35> Time Seen by Provider: 10/29/23 18:28 <FELIX Odell Last Filed: 10/29/23 23:35> Source: patient <FELIX Odell Last Filed: 10/29/23 23:35> Mode of arrival: ambulatory <FELIX Odell Last Filed: 10/29/23 23:35> Limitations: no limitations <FELIX Odell Last Filed: 10/29/23 23:35> History of Present Illness HPI narrative: This is a 68-year-old female who presents to the ED for chief complaint of heart palpitations since around 1500 today. Patient reports she was diagnosed with atrial fibrillation last week and has scheduled follow-up with primary and Cardiology this week. States that she forgot to take her diltiazem this morning so ended up taking at around 1300. States while walking into the ER she had a little bit shortness of breath but feels fine at rest. She is still having the palpitations. Denies chest pain, dizziness, syncope, nausea, vomiting, back pain, numbness, weakness. <FELIX Odell Last Filed: 10/29/23 23:35> Related Data Home Medications: Home Medications Medication Instructions Recorded Confirmed lidocaine 5 % topical patch 1 patch transdermal DAILY 10/22/23 10/29/23 omega-3 fatty acids 1 cap PO DAILY 10/22/23 10/29/23 <FELIX Odell Last Filed: 10/29/23 23:35> Allergies/Adverse Reactions: Allergies Allergy/AdvReac Type Severity Reaction Status Date / Time codeine AdvReac Mild NAUSEA Verified 10/29/23 18:22 <FELIX Odell Last Filed: 10/29/23 23:35> Review of Systems Review of Systems: All systems as dictated in HPI <FELIX Odell Last Filed: 10/29/23 23:35> [facility] Past Medical History Medical History: Medical History (Updated 10/29/23 @ 23:35 by Silver Calderón PA-C) Atrial fibrillation Dx 10/22/23 COVID-19 <Silver Calderón PA-C - Last Filed: 10/29/23 23:35> Surgical History Surgical History: Surgical History History of section History of tonsillectomy <Silver Calderón PA-C - Last Filed: 10/29/23 23:35> Family History Family History: Family History (Updated 10/29/23 @ 23:34 by Dhruv Romero RN) Father , at the age of 41 from an [place]. Myocardial infarction Mother Pacemaker <Silver Calderón PA-C - Last Filed: 10/29/23 23:35> Social History Social History: Social History Social History: Surrogate medical decision maker: Ruben Hernandez, son. Code status: Full code. Smoking status: Never smoker Alcohol intake: never Substance use: never Do You Feel Safe in your Home?: Yes Lack of Transportation: No Lack of Food: Never True Current Housing: I Have Housing Concerned About Future Housing: No Difficulty Paying Gas/Electric Bills: No Difficulty Paying for Meds: No Currently Unemployed: No Education: Bachelor's Degree Difficulty w/ Childcare or Family Care: No Additional living arrangements comments: The patient lives in [place]. She has 2 daughters and 1 son who are healthy. 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 Spiritual care concerns: No <Silver Calderón PA-C - Last Filed: 10/29/23 23:35> Exam Narrative: GENERAL: Well-appearing, well-nourished, and in no acute distress. HEAD: Normocephalic, atraumatic. EYES: PERRLA and EOMI. ENT: Nares clear, no rhinorrhea or epistaxis. Mucous membranes moist. Oropharynx without tonsillar hypertrophy exudate or other lesions. NECK: Supple. No adenopathy or masses. CHEST: No respiratory distress. Clear to auscultation. No wheezes rales or rhonchi HEART: Regular rate and rhythm. No murmur heard.
[2023-10-29 19:03] LABS: Basophils Absolute Auto 0.1 K/mm3 (0.0-0.1); Basophils Percent Auto 0.8 % (0.2-1.2); Eosinophils Absolute Auto 0.2 K/mm3 (0-0.3); Eosinophils Percent Auto 2.1 % (0-4.4); Hematocrit 43.6 % (37.0-47.0); Hemoglobin 14.5 g/dL (12.0-15.0); Immature Granulocyte Absolute 0.03 K/mm3 (0.00-0.031); Immature Granulocyte Percent A 0.4 % (0-0.5); Lymphocytes Absolute Auto 2.12 K/mm3 (0.9-3.2); Lymphocytes Percent Auto 29.1 % (18.3-44.2); Mean Corpuscular HGB Conc 33.3 g/dl (32-36); Mean Corpuscular Hemoglobin 29.5 pg (26-34); Mean Corpuscular Volume 88.8 fl (80-100); Mean Platelet Volume 8.9 fl (7.4-10.4); Monocytes Absolute Auto 0.7 K/mm3 (0.1-0.6); Monocytes Percent Auto 9.6 % (2.6-8.5); Neutrophils Absolute Auto 4.2 K/mm3 (1.3-6.7); Platelet Count Result 298 k/mm3 (150-375); Red Blood Count 4.91 M/mm3 (4.2-5.4); Red Cell Distribution Width 13.2 % (11.5-14.5); White Blood Count 7.3 K/mm3 (4.5-10.0)
[2023-10-29] MEDS: dilTIAZem HCl INJ 25 MG/5 ML VIAL 10 MG IV PUSH (19:04)
[2023-10-29 19:13] LABS: Alanine Aminotransferase 18 U/L (6-35); Albumin Level 4.4 g/dL (3.5-5.1); Alkaline Phosphatase 57 U/L (38-126); Anion Gap 10 mmol/L (4-12); Aspartate Amino Transferase 25 U/L (14-36); Bilirubin,Total 0.4 mg/dL (0.2-1.3); Blood Urea Nitrogen 13 mg/dL (7-17); Calcium 9.1 mg/dL (8.4-10.2); Carbon Dioxide 25 mmol/L (22-30); Chloride 103 mmol/L (98-107); Estimated CRCL calculation 72 ml/min; Estimated Glomerular Filt Rate > 60; Glucose 109 mg/dL (65-110); Lipase 94 U/L (23-300); Potassium 3.9 mmol/L (3.4-5.0); Sodium 138 mmol/L (137-145)
[2023-10-29 19:22] LABS: INR 0.9; Partial Thromboplastin Time 27.5 Seconds (22.3-36.8)
[2023-10-29 19:25] LABS: NT Pro B Type Natriuretic Pept 121 pg/mL (19.9-100); Troponin I < 0.012 ng/mL (0.000-0.034)
[2023-10-29 19:26] LABS: D Dimer 0.38 ug/mL (<0.48)
[2023-10-29] MEDS: SODIUM CHLORIDE 0.9% IV 1,000 ML 999 ML IV CONT (19:59)
[2023-10-29] MEDS: dilTIAZem 100 MG/100 ML 100 MG/100 ML BAG IV CONT (21:05)
[2023-10-29] MEDS: SODIUM CHLORIDE 0.9% IV 500 ML 999 ML IV CONT (21:34)
[2023-10-29 21:40] LABS: Troponin I < 0.012 ng/mL (0.000-0.034)
--- NOTE | 2023-10-29 21:40 | PM.IMHP ---
H&P: HPI History of Present Illness Date/Time: 10/29/23 21:40 Chief Complaint: Palpitations Narrative: This is a 68-year-old female with past medical history significant for paroxysmal atrial fibrillation. patient presents today to the emergency room due to palpitations and dizziness when stands. patient denies any chest pain, fevers, rigors, chills, syncope, near-syncope, nausea, vomiting, diarrhea, abdominal pain, leg swelling. In emergency room patient was found to have atrial fibrillation with rapid ventricular response given diltiazem however patient continued to have a heart rate of sedating in the 100 and 30s decision was made to start her on diltiazem drip. Patient has been placed in observation EXAMINATION: XR chest 2V DATE: 10/29/2023 19:03 INDICATION: Heart palpitations TECHNIQUE: PA and lateral views of the chest were obtained. COMPARISON: Chest radiograph dated 10/23/2023 FINDINGS: Mild hyperexpansion of the lungs. Unchanged curvilinear atelectasis/scarring at the posterior left lung base. No new airspace opacities, pulmonary edema, pleural effusion or pneumothorax. The cardiomediastinal silhouette is normal. Thoracolumbar dextrocurvature with moderate spondylosis. IMPRESSION: 1. Unchanged curvilinear atelectasis/scarring at the posterior left lung base. Review of Systems Review of Systems: palpitations, lightheadedness PMFSH Past Medical History Medical History (Updated 10/29/23 @ 23:35 by Silver Calderón PA-C) Atrial fibrillation Dx 10/22/23 COVID-19 Surgical History Surgical History History of section History of tonsillectomy Family History Family History (Updated 10/29/23 @ 23:34 by Dhruv Romero RN) Father , at the age of 41 from an [place]. Myocardial infarction Mother Pacemaker Social History Social History Social History: Surrogate medical decision maker: Ruben Hernandez, liu. Code status: Full code. Smoking status: Never smoker Alcohol intake: never Substance use: never Do You Feel Safe in your Home?: Yes Lack of Transportation: No Lack of Food: Never True Current Housing: I Have Housing Concerned About Future Housing: No Difficulty Paying Gas/Electric Bills: No Difficulty Paying for Meds: No Currently Unemployed: No Education: Bachelor's Degree Difficulty w/ Childcare or Family Care: No Additional living arrangements comments: The patient lives in [place]. She has 2 daughters and 1 son who are healthy. 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 Spiritual care concerns: No Meds Home Medications and Allergies Home Medications Medication Instructions Recorded Confirmed Type lidocaine 5 % topical patch 1 patch transdermal DAILY 10/22/23 10/29/23 History omega-3 fatty acids 1 cap PO DAILY 10/22/23 10/29/23 History diltiazem HCl 120 mg 120 mg PO DAILY #90 caps 10/23/23 10/29/23 Rx capsule,extended release 24 hr Allergies Allergy/AdvReac Type Severity Reaction Status Date / Time codeine AdvReac Mild NAUSEA Verified 10/29/23 18:22 Vital Signs Vital Signs - 24 hr 10/29/23 18:19 10/29/23 18:35 10/29/23 19:11 Temperature 97.8 F Pulse Rate 78 140 H 121 H Respiratory Rate 16 21 H 19 Blood Pressure 132/60 Pulse Oximetry 100 94 93 Oxygen Delivery Room Air 10/29/23 19:15 10/29/23 19:17 10/29/23 19:31 Temperature Pulse Rate 97 Respiratory Rate 18 21 H 16 Blood Pressure 100/55 L 99/71 L Pulse Oximetry 95 93 94 Oxygen Delivery 10/29/23 19:32 10/29/23 19:46 10/29/23 19:47 Temperature Pulse Rate 103 H 106 H 110 H Respiratory Rate 17 16 16 Blood Pressure 84/63 L Pulse Oximetry 94 94 94 Oxygen Delivery 10/29/23 20:02 10/29/23 20:03 10/29/23 21:05 Temperature Pulse Rate 124 H 132 H 117 H Respiratory Rate 21 H 23 H Blood Pressure 9
--- NOTE | 2023-10-29 21:41 | PC.NURSE ---
ok to wait for 3 hour EKG at this time per provider.
--- NOTE | 2023-10-29 22:46 | ECG_ITS ---
Test Date: 2023-10-29 22:54:06 Measurements Intervals [place] Rate: 114 P: 0 [place]: 0 QRS: 2 QRSD: 91 T: 19 QT: 360 QTc: 496 Interpretive Statements ATRIAL FIBRILLATION WITH RAPID VENTRICULAR RESPONSE NONSPECIFIC T-WAVE ABNORMALITY ABNORMAL RHYTHM ECG Compared to ECG 10/29/2023 18:26:05 HEART RATE RESPONSE TO ATRIAL FIBRILLATION RATE, V RATEIS IMPROVED Electronically Signed On 10-31-2023 10:46:21 CDT by Nimesh Crespo M.D.
--- NOTE | 2023-10-29 23:15 | ADMGEN ---
This patient, Deirdre Hernandez, was admitted to IMU Room 210-01. Patient/family oriented to hospital policies and general routines including ID bracelet, bed and alarms, visiting hours, pain management, procedures, bathroom and other care routines, personal items, smoking policy, room service/diet, and visiting hours. Information on how to activate the Rapid Response Team has been discussed. Patient/Family are encouraged to report perceived risks to care and to ask questions if they do not understand what they are told or what they should do.
[2023-10-30] VITALS (23 sets, daily range): BP systolic 94–133; BP diastolic 43–71; PULSE 59–83; RESP 16–18; TEMP 36.2–36.8; O2SAT 94–99
[2023-10-30 01:03] LABS: Troponin I < 0.012 ng/mL (0.000-0.034)
--- NOTE | 2023-10-30 06:03 | ECG_ITS ---
Test Date: 2023-10-30 06:14:08 Measurements Intervals [place] Rate: 65 P: 37 [place]: 160 QRS: 6 QRSD: 91 T: 253 QT: 413 QTc: 432 Interpretive Statements POOR ECG QUALITY BECAUSE OF MOTION ARTIFACT SINUS RHYTHM NONSPECIFIC ST AND T ABNORMALITY ABNORMAL ECG Compared to ECG 10/29/2023 22:54:06 SINUS RHYTHM REPLACES ATRIAL FIBRILLATION Electronically Signed On 10-31-2023 10:51:55 CDT by Nimesh Crespo M.D.
[2023-10-30] MEDS: dilTIAZem HCL CD 120 MG CAP.24HR PO (09:00)
--- NOTE | 2023-10-30 09:58 | PM.IMPN ---
Progress Note: A&P Assessment and Plan (1) Atrial fibrillation with rapid ventricular response: Code(s): I48.91 - Unspecified atrial fibrillation Status: Acute Assessment and Plan: taking diltiazem every day this week, but reported palpitations on Friday twice, about an hour and a half each time. Reports feeling a bit weaker with the palpitations, but no chest pain or shortness of breath, dizziness, or other associated symptoms. Otherwise she's been feeling well. Was late taking diltiazem yesterday, took it around noon. Started having palpitations around 3pm and they didn't resolve, so she came in to be evaluated. --admitted to IMU --started on diltiazem drip Heart rate low, 40's this morning, so diltiazem drip turned off this morning --Restarted oral diltiazem 120 daily, stop --Cardiology consulted, starting flecainide today (2) Palpitations: Code(s): R00.2 - Palpitations Status: Acute Assessment and Plan: likely secondary to paroxysmal atrial fibrillation Plan Time Spent With Patient Time: >30 minutes Spoke with cardiology and patient Subjective Date/time seen: 10/30/23 09:58 Interval history: Feeling better today. Palpitations resolved. Has been taking diltiazem every day this week, but reported palpitations on Friday twice, about an hour and a half each time. Reports feeling a bit weaker with the palpitations, but no chest pain or shortness of breath, dizziness, or other symptoms associated with the palpitations. Otherwise she's been feeling well. Was late taking diltiazem yesterday, took it around noon. Started having palpitations around 3pm so she came in to be evaluated for that reason. Heart rate low, 40's so diltiazem drip turned off this morning, restarted oral diltiazem. Review of Systems Review of Systems: palpitations, lightheadedness Objective Data Vital Signs Vital Signs: Vital Signs - 24 hr 10/29/23 18:19 10/29/23 18:35 10/29/23 19:11 Temperature 97.8 F Pulse Rate 78 140 H 121 H Respiratory Rate 16 21 H 19 Blood Pressure 132/60 Pulse Oximetry 100 94 93 Oxygen Delivery Room Air 10/29/23 19:15 10/29/23 19:17 10/29/23 19:31 Temperature Pulse Rate 97 Respiratory Rate 18 21 H 16 Blood Pressure 100/55 L 99/71 L Pulse Oximetry 95 93 94 Oxygen Delivery 10/29/23 19:32 10/29/23 19:46 10/29/23 19:47 Temperature Pulse Rate 103 H 106 H 110 H Respiratory Rate 17 16 16 Blood Pressure 84/63 L Pulse Oximetry 94 94 94 Oxygen Delivery 10/29/23 20:02 10/29/23 20:03 10/29/23 21:05 Temperature Pulse Rate 124 H 132 H 117 H Respiratory Rate 21 H 23 H Blood Pressure 97/66 L 119/72 Pulse Oximetry 94 95 Oxygen Delivery 10/29/23 23:15 10/30/23 00:00 10/30/23 00:00 Temperature 97.4 F L Pulse Rate 112 H 68 68 Respiratory Rate 16 16 Blood Pressure 110/53 L Pulse Oximetry 99 99 Oxygen Delivery Room Air 10/29/23 23:15 10/29/23 23:30 10/30/23 01:56 Temperature Pulse Rate 105 H 67 Respiratory Rate Blood Pressure 101/53 L Pulse Oximetry 99 Oxygen Delivery Room Air 10/30/23 02:00 10/30/23 03:58 10/30/23 03:59 Temperature Pulse Rate 63 62 62 Respiratory Rate 16 Blood Pressure Pulse Oximetry 99 Oxygen Delivery Room Air 10/30/23 04:00 10/30/23 00:00 10/30/23 02:00 Temperature 97.5 F L Pulse Rate 63 68 63 Respiratory Rate 16 Blood Pressure 94/51 L 110/53 L 101/53 L Pulse Oximetry 98 Oxygen Delivery 10/30/23 04:00 10/30/23 06:00 10/30/23 06:00 Temperature Pulse Rate 63 61 Respiratory Rate Blood Pressure 94/51 L 105/43 L Pulse Oximetry Oxygen Delivery 10/30/23 06:00 10/30/23 08:00 10/30/23 07:00 Temperature 97.2 F L Pulse Rate 63 67 59 L Respiratory Rate 18 Blood Pressure 105/43 L 111/46 L Pulse Oximetry 96 Oxygen Delivery 10/30/23 08:00 Temperature Pulse Rate 67 Respiratory Rate Blood Pressure P
--- NOTE | 2023-10-30 10:15 | PM.CNCAR ---
Assessment and Plan Assessment and plan (1) Atrial fibrillation with rapid ventricular response: Code(s): I48.91 - Unspecified atrial fibrillation Status: Acute Assessment and Plan: Stop Diltiazem. Will start Flecainide 50mg BID in hopes of better maintaining sinus rhythm. Keep patient today and monitor on tele for recurrent AFIB, hopefully can discharge home tomorrow if no recurrent AFIB and tolerating Flecainide without issue. [id number] is 2 for age and gender. As [id number] is not 3 yet, she does not need anticoagulation for stroke risk reduction. She will need to start anticoagulation once her [id number] turns 3. Recommend outpatient sleep study. Recent TSH level normal. Recent echocardiogram with preserved LVEF. Keep appointment with Dr. Crespo for November 05. Plan Recommendations and plan discussed with Hospitalist. History of Present Illness History of Present Illness Consult date/time: 10/30/23 10:15 Requesting physician: Estefani Fitzgerald PA-C Consult reason: atrial fibrillation Reason For Visit: Afib RVR Narrative: This is a 68 year old female with recently diagnosed paroxysmal atrial fibrillation who was recently admitted here at [facility] for atrial fibrillation. Had converted to sinus rhythm while on Diltiazem drip, so she had been transitioned to PO Diltiazem, however, since then she has had intermittent palpitations. On the day of discharge on 10/22, she actually had recurrent palpitations and presented back to [facility] and was noted to be in atrial fibrillation with RVR again. She was rate controlled in the ER and discharged home as she had close outpatient follow up with her tourist cabin keeper Dr. Crespo on 11/05. Patient has had intermittent palpitations since then. Yesterday, she had forgotten to take her Diltiazem dose in the morning and took it in the afternoon, developed palpitations later in the afternoon that persisted, therefore, she came to the ED. Was in RVR so she was placed on Diltiazem drip. Converted to sinus rhythm overnight and remains in sinus rhythm this morning. Review of Systems Review of Systems: All systems reviewed & are unremarkable except as noted in HPI and below (HPI) [facility] Past Medical History Medical History Atrial fibrillation Dx 10/22/23 COVID-19 Surgical History Surgical History History of section History of tonsillectomy Family History Family History Father , at the age of 41 from an VT. Myocardial infarction Mother Pacemaker Social History Social History Social History: Surrogate medical decision maker: Ruben Hernandez, son. Code status: Full code. Smoking status: Never smoker Alcohol intake: never Substance use: never Do You Feel Safe in your Home?: Yes Lack of Transportation: No Lack of Food: Never True Current Housing: I Have Housing Concerned About Future Housing: No Difficulty Paying Gas/Electric Bills: No Difficulty Paying for Meds: No Currently Unemployed: No Education: Bachelor's Degree Difficulty w/ Childcare or Family Care: No Additional living arrangements comments: The patient lives in [place]. She has 2 daughters and 1 son who are healthy. 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 Spiritual care concerns: No Meds Home Medications and Allergies Home Medications Medication Instructions Recorded Confirmed Type lidocaine 5 % topical patch 1 patch transdermal DAILY 10/22/23 10/29/23 History omega-3 fatty acids 1 cap PO DAILY 10/22/23 10/29/23 History diltiazem HCl 120 mg 120 mg PO DAILY #90 caps 10/23/23 10/29/23 Rx capsule,extended release 24 hr Allergies Allergy/AdvReac Type Severity Reaction Status Date / Time codeine AdvReac Mild NAUS
[2023-10-30] MEDS: FLECAINIDE ACETATE 50 MG TABLET PO ×2 (11:03→21:15)
[2023-10-31] VITALS (8 sets, daily range): BP systolic 131–134; BP diastolic 57–62; PULSE 57–70; RESP 14–18; TEMP 36.8; O2SAT 96
[2023-10-31 07:28] LABS: Anion Gap 6 mmol/L (4-12); Blood Urea Nitrogen 13 mg/dL (7-17); Calcium 8.8 mg/dL (8.4-10.2); Carbon Dioxide 28 mmol/L (22-30); Chloride 105 mmol/L (98-107); Estimated CRCL calculation 63 ml/min; Estimated Glomerular Filt Rate > 60; Glucose 89 mg/dL (65-110); Sodium 139 mmol/L (137-145)
[2023-10-31] MEDS: FLECAINIDE ACETATE 50 MG TABLET PO (08:24)
--- NOTE | 2023-10-31 09:47 | PM.PNCARD ---
Progress Note: A&P Assessment and Plan (1) Atrial fibrillation with rapid ventricular response: Code(s): I48.91 - Unspecified atrial fibrillation Status: Acute Plan Paroxysmal atrial fibrillation now started on flecainide for rhythm control. Patient is stable clinically and from my perspective it is okay for discharge. She has an appointment to see me in a short interval in the office. We will assess her response to flecainide at the time of that appointment. Nimesh Crespo MD [facility] Subjective Date/time seen: Date of service: 10/31/23 09:47 Interval history: Follow-up visit in this 68-year-old lady with paroxysmal atrial fib recently diagnosed. She was admitted for a early recurrence of her arrhythmia and started on flecainide. She is asymptomatic this morning and feels well and is maintaining sinus rhythm. Discussion with the patient about antiarrhythmic management options and the need for longitudinal follow-up on antiarrhythmic medication. Exam Const: General: comfortable and no acute distress HENMT: Mouth: Yes moist mucous membranes Eyes: Sclera: sclerae normal Neck: Neck: supple and no JVD Resp: Effort & Inspection: normal respiratory effort Auscultation: clear to auscultation bilaterally Cardio: Rate: regular rate Rhythm: regular rhythm GI: GI Palp: Yes Soft to palpation Auscultation: normal bowel sounds Skin: General skin exam: normal color Neuro: Other: Alert and oriented x3 Extrem: General: normal to inspection Objective Data Vital Signs Vital Signs: Vital Signs - 24 hr 10/30/23 10:00 10/30/23 11:03 10/30/23 11:56 Temperature 36.8 C Pulse Rate 67 68 65 Respiratory Rate 16 Blood Pressure 133/71 Pulse Oximetry 99 Oxygen Delivery 10/30/23 12:00 10/30/23 14:00 10/30/23 16:00 Temperature Pulse Rate 72 70 66 Respiratory Rate Blood Pressure Pulse Oximetry Oxygen Delivery 10/30/23 16:00 10/30/23 18:00 10/30/23 19:40 Temperature 36.7 C 36.7 C Pulse Rate 64 71 67 Respiratory Rate 16 18 Blood Pressure 128/60 125/61 Pulse Oximetry 94 95 Oxygen Delivery 10/30/23 20:00 10/30/23 20:00 10/30/23 21:15 Temperature Pulse Rate 67 67 71 Respiratory Rate 18 Blood Pressure Pulse Oximetry 95 Oxygen Delivery Room Air 10/30/23 21:54 10/30/23 23:36 10/30/23 23:43 Temperature 36.8 C Pulse Rate 71 83 76 Respiratory Rate 18 Blood Pressure 116/64 Pulse Oximetry 96 Oxygen Delivery 10/30/23 23:44 10/31/23 02:00 10/31/23 04:07 Temperature 36.8 C Pulse Rate 76 60 65 Respiratory Rate 18 18 Blood Pressure 134/62 Pulse Oximetry 96 96 Oxygen Delivery Room Air 10/31/23 04:00 10/31/23 04:00 10/31/23 06:00 Temperature Pulse Rate 63 65 57 L Respiratory Rate 18 Blood Pressure Pulse Oximetry 96 Oxygen Delivery Room Air 10/31/23 07:48 10/31/23 08:24 Temperature 36.8 C Pulse Rate 68 70 Respiratory Rate 14 Blood Pressure 131/57 L Pulse Oximetry 96 Oxygen Delivery Intake/Output Intake/Output: Intake & Output 10/28/23 10/29/23 10/30/23 10/31/23 23:59 23:59 23:59 23:59 Intake Total 1500 1569.6 840 Output Total 1500 1000 Balance 1500 69.6 -160 Meds/Results Medications: Active Medications Generic Name Dose Route Start Last Admin Trade Name Freq PRN Reason Stop Dose Admin Flecainide Acetate 50 mg 10/30/23 10:15 10/31/23 08:24 Flecainide Acetate 50 Mg Tablet PO 50 mg Q12HR BRYAN Administration Radiology Results: ITS Impressions Chest X-Ray 10/29/23 19:13 IMPRESSION: 1. Unchanged curvilinear atelectasis/scarring at the posterior left lung base. Labs Labs: Laboratory Results - last 24 hr 10/31/23 06:58 Sodium 139 Potassium 4.0 Chloride 105 Carbon Dioxide 28 Anion Gap 6 BUN 13 Creatinine 0.70 Estim Creat Clear Calc 63 Estimated GFR > 60 Glucose 89 Calcium 8.8 Magnesium 2.0
--- NOTE | 2023-10-31 10:45 | PM.DS ---
DS: Admitting Diagnosis Discharge Date October 31, 2023 Admitting Diagnosis Palpitations DS: Discharge Diagnosis Discharge Diagnosis (1) Atrial fibrillation with rapid ventricular response: Code(s): I48.91 - Unspecified atrial fibrillation Status: Acute (2) Palpitations: Code(s): R00.2 - Palpitations Status: Acute DS: Summary Hospital Course Hospital Course: 68-year-old female with paroxysmal atrial fibrillation presents with palpitations. She was admitted and started on diltiazem GTT which was transition to diltiazem oral. Cardiology consulted and she was switched to flecainide 50 mg p.o. b.i.d. and then increased to 100 mg p.o. b.i.d.. She has remained in normal sinus rhythm and her palpitations have resolved. TSH level normal recently. Recommend outpatient sleep study to which the patient will follow with her PCP. Recent echocardiogram with preserved LVEF. Stable for discharge on 10/31/2023 with follow-up with her taxonomy teacher Dr. Crespo to assess response to the flecainide. Adverse effects, risk and benefits of medication discussed. Patient understands and agrees to the plan. He was full code. Time Spent with Patient Time attestation: Total time spent providing and/or coordinating discharge services: Time spent: Greater than 30 minutes Exam Const: General: comfortable and no acute distress Eyes: Pupils: Equal, round and reactive pupils present Neck: Neck: supple Resp: Effort & Inspection: normal respiratory effort Auscultation: clear to auscultation bilaterally Cardio: Rate: regular rate Rhythm: regular rhythm GI: GI Palp: Yes Soft to palpation and No Tenderness to palpation present (GI) Extrem: General: no edema DS: Data Data Completed and Pending Labs on day of discharge: Labs from last 24 hours 10/31/23 06:58 Sodium 139 Potassium 4.0 Chloride 105 Carbon Dioxide 28 Anion Gap 6 BUN 13 Creatinine 0.70 Estim Creat Clear Calc 63 Estimated GFR > 60 Glucose 89 Calcium 8.8 Magnesium 2.0 Discharge Plan Discharge Attending physician on discharge: Zita Naqvi Consulting providers: Ave Fuller Discharging Clinician: Zita Naqvi Patient Disposition: Home, Self-Care Activity: may shower Diet: as tolerated Discharge Instructions: Keep your appointment with Dr. Crespo Patient Instructions: Antibiotic Form, Flecainide (By mouth), A-fib (Atrial Fibrillation) (GEN) Stand Alone Forms: General Discharge Information Follow-up/Referrals: Radha,MD Sara [Primary Care Provider] - Call for Appointment Discharge Medications: New flecainide 100 mg Tablet 100 mg PO Q12HR Qty: 60 0RF Continued lidocaine 5 % adhesive patch,medicated 1 patch transdermal DAILY Rx Instructions: Lower back omega-3 fatty acids Capsule 1 cap PO DAILY Discontinued diltiazem HCl 120 mg capsule,extended release 24hr 120 mg PO DAILY Qty: 90 0RF Date of admission: 10/31/23 09:11 Primary Care Provider: RadhaSara Admitting Provider: Carina Lundy V. Attending physician on admission: Chica Rossi Condition: Stable Hospitalist MIPS Heart Failure (Exclusion) Patient has history of Heart Transplant or Left Ventricular Assistive Device?: No IF YES, STOP HERE Heart Failure (Qualifier) Patient has current or prior documentation of LVEF less than or equal to 40%, or mod/servere depressed LVSF?: No IF NO, STOP HERE
== END 2023-10-31 12:30 | disposition home or self-care (01) ==
LOC: ANHED 23:00 → ANHIMU 23:00
PROVIDERS: Student in an Organized Health Care Education/Training Program; Admitting Provider Internal Medicine; Emergency Provider Physician Assistant; PCP Family Medicine; Visit Provider Nurse Practitioner Acute Care
DX: I48.91 Unspecified atrial fibrillation (principal); R00.2 Palpitations
CPT/HCPCS: 36415; 71046; 80048; 80053; 83690; 83735; 83880; 84484; 85025; 85380; 85610; 85730; 93005; 96361; 96365; 96366; 96376; 99285; A9270; G0378; J7030; J7040

== ENCOUNTER 2024-06-09 00:23 | Day surgery (SDC) | payer OTHER, SELFPAY ==
[2024-05-31 09:52] VITALS: BMI 29.8
--- NOTE | 2024-05-31 10:04 | SUR.PREOP ---
Spoke with patient regarding medication Eliquis_. Patient verbalizes understanding that the last dose is to be taken on 06/06/2024 and the Endoscopist will instruct them when to restart after the procedure.
--- OUTSIDE RECORDS SUMMARY | 2024-06-09 00:27 | XMS_ITS | Clinical Summary ---
Author Organization [facility] Address [address] [place] [address] Care Team Providers Care Laborer Plumbing Name Role Phone Citlaly Izaguirre MD Primary Care Provider + Allergies Active Allergy Reactions Criticality Noted Date Comments Cephalexin Rash,Redness Low 04/29/2019 Codeine GI Upset,Nausea Only Low 04/29/2019 Medications Calcium Carbonate-Vitam in D 600-3.125 MG-MCG Tab Take by mouth 2 (two) times daily. Active ELIQUIS 5 MG tablet Take 1 tablet (5 mg total) by mouth 2 (two) times daily. 4 Active carbidopa-levod opa (SINEMET) 25-100 MG tablet 2 tabs three times daily with meals Active GARLIC OR Take by mouth daily. Active Lactobacillus Acid-Pectin (ACIDOPHILUS/PE CTIN) capsule Take 1 capsule by mouth daily. Active Multiple Vitamin (MULTIVITAMIN ADULT OR) Take 1 tablet by mouth daily. Active dilTIAZem CD (CARDIZEM CD) 120 MG 24 hr capsule Take 1 capsule (120 mg total) by mouth daily. 4 05/11/19 25 Discontinu ed(Therapy completed) flecainide (TAMBOCOR) 100 MG tablet Take 1 tablet (100 mg total) by mouth every 12 (twelve) hours. 4 05/11/19 25 Discontinu ed(Therapy completed) metoprolol succinate ER (TOPROL-XL) 25 MG 24 hr tablet Take 1 tablet (25 mg total) by mouth daily. 4 05/11/19 25 Discontinu ed(Therapy completed) sotalol (BETAPACE) 120 MG tablet Take 1 tablet (120 mg total) by mouth 2 (two) times daily. 4 05/11/19 25 Discontinu ed(Therapy completed) sotalol (BETAPACE) 80 MG tablet Take 1 tablet (80 mg total) by mouth 2 (two) times daily. 4 05/11/19 25 Discontinu ed(Therapy completed) Active Problems Problem Noted Date Diagnosed Date Parkinson disease ([facility]) 05/11/2024 Overview (05/11/2024): Takes carbidopa-levodopa. Goes to [facility] Left hand tremor and occasionally voice. Diagnosed in December. Voice feels stronger and writing is improved in the right hand. Assessment & Plan (05/11/2024 2:51 PM CHIEF OF STAFF DOCTOR): Await neurology recommendations. Stable. Symptoms are very mild. S/P ablation of atrial fibrillation 05/07/2024 Anticoagulation management encounter 11/20/2023 Atrial fibrillation ([facility]) 11/05/2023 Overview (05/11/2024): s/p catheter ablation 01/08/24. Palpitations currently resolved. Follow up with Cardiology. Continue Eliquis. Now off sotalol. Plastics Fabricator is Dr. Lobo. Assessment & Plan (05/11/2024 2:50 PM CHIEF OF STAFF DOCTOR): Managed by electrophysiology. Now in normal sinus rhythm following ablation. Remains on Eliquis. Other thrombophilia ([facility]) 11/05/2023 Overview (05/11/2024): Chronic mildly elevated hemoglobin hematocrit. Previous PCP was simply monitoring. Assessment & Plan (05/11/2024 2:50 PM CHIEF OF STAFF DOCTOR): Isolated reading with elevated hemoglobin and hematocrit. Will confirm this is resolved. Chronic bilateral low back pain without sciatica 11/13/2022 Osteopenia 11/16/2020 Hyperlipidemia 04/29/2019 Encounters Date Type Department Care Team Description 05/12/2024 Scan [place] [facility] Scanned, [facility] 05/12/[address] [facility] [address] [place] [address] Citlaly Izaguirre MD Anticoagulation (/) 05/12/2024 MyChart Message Enc [facility] [address] [place] [address] [phone] [facility], [facility] Provider [facility]NAGMENT CLINIC 05/11/2024 1:20 PM CHIEF OF STAFF DOCTOR Office Visit [facility] [address] [place] [address] Citlaly Izaguirre MD New Patient (Here to get established. She had annual Jan 2024. ) 05/11/2024 Travel from Last 3 Months Immunizations Name Administration Dates Next Due Abrysvo Respiratory Syncytia l Virus (RSV) 0.5 mL, PF 01/30/2023 FLUAD (IIV, Trivalent, 0.5 M L Pre-filled Syringe) 12/27/2023 Fluzone High Dose (IIV, trivalent, 0.5mL) 2018 Fluzone High Dose - >Age 65 (Prefilled Syringe) 01/03/2023,12/26/2021,01/20/2020 Hepatitis A (Havrix 14[address]U) 01/16/2023 Influenza (Generic) 12/27/2021,01/26/2021 Influenza Adult (Generic) 01/26/2021,03/16/2018 Pneumococcal (Pneumovax 23) 11/16/2020 Pneumococcal (Prevnar 13) 04/29/2019 Pneumococcal (Prevnar 20) 05/11/2024 Shingrix 01/31/2022,04/29/2019 Tdap (Generic) 12/10/2013 Typhoid (Typhim ) 01/16/2023 Zoster (Zostavax) 27700 Unt/0.65Ml 12/10/2013 Family History Medical History Relation Comments Hypertension Brother Vision loss Brother No Known Problems Daughter 1 No Known Problems Daughter 2 Early Father Heart Disease Father Heart Disease Mother Vision loss Mother Heart Disease Paternal Grandfather Heart Disease Paternal Grandmother No Known Problems Son Relation Status Comments Brother Alive Daughter 1 Alive Daughter 2 Alive Father Mother Paternal Grandfather Paternal Grandmother Son Alive Social History Tobacco Use Types Packs/Day Years Used Date Smoking Tobacco: Never Passive Smoke Exposure: Past Smokeless Tobacco: Never Tobacco Cessation:Counseling Given: No Alcohol Use Standard Drinks/Week Comments Never 0 (1 standard drink = 0.6 oz pur e alcohol) PHQ-2 Answer Date Recorded Patient Health Questionnaire-2 Score 0 05/11/2024 Comments Unknown Sex and Gender Information Value Date Recorded Sex Assigned at Not on file Legal Sex Female 9:45 AM CHIEF OF STAFF DOCTOR Gender Identity Not on file Sexual Orientation Not on file Last Filed Vital Signs Vital Sign Reading Time Taken Comments Blood Pressure 113/70 05/11/2024 1:35 PM CHIEF OF STAFF DOCTOR Pulse 99 05/11/2024 1:35 PM CHIEF OF STAFF DOCTOR Temperature 37.1 C (98.7 F) 05/11/2024 1:35 PM CHIEF OF STAFF DOCTOR Respiratory Rate - - Oxygen Saturation 98% 05/11/2024 1:35 PM CHIEF OF STAFF DOCTOR Inhaled Oxygen Concentration - - Weight 77.7 kg (171 lb 6.4 oz) 05/11/2024 1:35 P M CHIEF OF STAFF DOCTOR Height 160 cm (5' 3 ) 05/11/2024 1:35 PM CHIEF OF STAFF DOCTOR Body Mass Index 30.36 05/11/2024 1:35 PM CHIEF OF STAFF DOCTOR Plan of Treatment Upcoming Encounters Date Type Department Care Team (Late st Contact Info) Description 06/10/2024 11:00 AM CDT Hospital Encounter [facility] [place] [address] [phone] Naheed Goodrich, COIL STRAPPER [address] [phone] (Work) 06/11/2024 12:20 PM CDT Appointment [facility] [place] [address] Citlaly Izaguirre MD [address] [place] [phone] 07/12/2024 8:[address] [facility] [place] [address] Citlaly Izaguirre MD [address] [place] [address] [phone] 05/13/2025 10:30 AM CHIEF OF STAFF DOCTOR Office Visit [facility] Family Medicine - [place] [address] [place] [address] [phone] Citlaly Izaguirre MD [address] [place] [address] [phone] Health Maintenance Due Date Last Done Comments Colorectal Cancer Screening Colonoscopy (10 Years) 1955 Hepatitis C 08/07/1971 Annual Medicare Wellness Visit 2018 DTaP, Tdap and Td Vaccines (2 - Td or Tdap) 12/11/2023 12/10/2013 Mammogram Screening 06/09/2025 06/10/2023, 05/04/2022, 12/11/2020, Additional history exists Zoster Vaccines Completed 01/31/2022, 04/02, 12/10/2013 Dexa Scan (General) Completed 07/11/2022, 07/11/2022, 06/10/2019 RSV Immunization or 60+ Years Completed 01/30/2023 COVID-19 Vaccine Completed 12/27/2023, 08/2022, 02/14/2022, Additional history exists Influenza Adult Completed 12/27/2023, 08/2022, 12/27/2021, Additional history exists PHQ-2 (Physician [place]) Completed 05/11/2024 Pneumococcal Vaccine: 65+ Years Completed 05/11/2024, 11/16/2020, 04/29/2019 Meningococcal B Vaccine Aged Out No l onger eligible based on patient's age to complete this topic Meningococcal Vaccine Aged Out No macey paz eligible based on patient's age to complete this topic RSV Immunizations Under 20 Months Aged Out No longer eligible based on patient's age to complete this topic Insurance ESSENCE Care Teams Laborer Plumbing Relationship Specialty Start Date End Date Citlaly Izaguirre MD [address] [place] [phone] PCP - General FAMILY PRACTICE 05/11/24
--- OUTSIDE RECORDS SUMMARY | 2024-06-09 00:27 | XMS_ITS | Encounter Summary ---
Author Organization [facility] Address [address] [place] [id number] Care Team Providers Care Cafe Aide Name Role Phone Citlaly Izaguirre MD Primary Care Provider + Encounter Details Date Type Department Care Team (Latest Contact Info) Description 05/12/2024 Proper Cloth Message Enc [facility] [place] [address] [phone] [place], [facility] Provider PAIN MANAGMENT CLINIC Social History Tobacco Use Types Packs/Day Years Used Date Smoking Tobacco: Never Passive Smoke Exposure: Past Smokeless Tobacco: Never Alcohol Use Standard Drinks/Week Comments Never 0 (1 standard drink = 0.6 oz pur e alcohol) PHQ-2 Answer Date Recorded Patient Health Questionnaire-2 Score 0 05/11/2024 Comments Unknown Sex and Gender Information Value Date Recorded Sex Assigned at Not on file Legal Sex Female 9:45 AM CIGAR PACKER AND PICKER Gender Identity Not on file Sexual Orientation Not on file documented as of this encounter Plan of Treatment Upcoming Encounters Date Type Department Care Team (Late st Contact Info) Description 06/10/2024 11:00 AM CDT Hospital Encounter [facility] [place] [address] [phone] Naheed Goodrich, UNIT MANAGER RN [address] [phone] (Work) 06/11/2024 12:20 PM CDT Appointment [facility] [place] [address] Citlaly Izaguirre MD [address] [place] [address] [phone] 07/12/2024 8:00 AM CDT Appointment [facility] [place] [address] Citlaly Izaguirre MD [address] [place] [address] [phone] 05/13/2025 10:30 AM CIGAR PACKER AND PICKER Office Visit [facility] Family Medicine - [place] [address] [place] [address] [phone] Citlaly Izaguirre MD [address] [facility] [address] [place] [address] [phone] documented as of this encounter Visit Diagnoses Not on filedocumented in this encounter Care Teams Cafe Aide Relationship Specialty Start Date End Date Citlaly Izaguirre MD [address] [place] [address] [phone] PCP - General FAMILY PRACTICE 05/11/24 documented as of this encounter
--- OUTSIDE RECORDS SUMMARY | 2024-06-09 00:28 | XMS_ITS | Clinical Summary ---
Author Organization [address] Address [address] [address] Care Team Providers Care Assembler Musical Equipment Name Role Phone Jw Owen MD Unavailable [phone] Citlaly Izaguirre MD Primary Care Provider Allergies Active Allergy Reactions Criticality Noted Date Comments Cephalexin Redness Low 04/29/2019 Codeine Nausea only Low 04/29/2019 Medications garlic 1,000 mg capsule Take by mouth daily Active acidophilus-pe ctin, citrus 100 million cell-10 mg capsule Take 1 capsule by mouth every evening Active apixaban (ELIQUIS) 5 mg tablet Take 1 tablet (5 mg total) by mouth 2 (two) times a day 60 tablet 11 4 Active calcium carb/vitamin D3/vit K1 (CALCIUM-VITAM IN D3-VITAMIN K ORAL) Take 1 tablet/chew tab by mouth 2 (two) times a day CALCIUM 650MG, VITAMIN D 12.5MCG, VITAMIN K 40MCG Active MULTIVITAMIN ORAL Take 2 tablet/chew tab by mouth daily Active UNABLE TO FIND Take 2 each by mouth 2 (two) times a day Med Name: BIOCLEANSE CAPSULE-VITAMI N C 150MG, MAGNESIUM 380MG, SODIUM 50MG Active UNABLE TO FIND Take 2 each by mouth daily Med Name: OMEGA 3, OMEGA 6, OMEGA 5-SOFTGEL CAPSULE Active UNABLE TO FIND Take 1 each by mouth daily Med Name: DIETARY BLEND-MUSCLE POWER AND TURMERIC Active carbidopa-levo dopa (SINEMET) 25-100 mg per tabletIndicati ons:Parkinsoni sm Take 3.5 tablets by mouth 3 (three) times a day 270 tablet 6 5 05/21/19 26 Active carbidopa-levo dopa (SINEMET) 25-100 mg per tabletIndicati ons:Parkinsoni sm 2.5 tabs TID with meals for 2 weeks, then 3 tabs TID with meals 270 tablet 6 4 05/21/19 25 Discontinu ed(Reorder ) Active Problems Problem Noted Date Diagnosed Date Tremor 05/21/2024 Parkinsonism 05/21/2024 Assessment & Plan (05/21/2024 10:47 AM PRESS BRAKE OPERATOR): Mrs. Hernandez is a 68 y.o. woman who currently presents to our clinic for follow- up of tremors and parkinsonism, suspected Parkinson's Disease. Briefly, she presented in December 2023 with a for four year history of asymmetric postural, resting, and action tremor affecting her left hand, most recently progressing to her right hand. Additionally, she also had overall slowness of movement, including her gait. She also had symptoms of micrographia, urinary symptoms, and mild postural instability. Her physical examination at initial evaluation with Dr. Anuel Valverde 01/07/24 was remarkable for asymmetric parkinsonism with mild postural instability. Since starting levodopa she has noticed some partial benefit with improved tremor in right hand, voice strength/reduced voice tremor but not appreciated further benefit herself. On exam she has had improvement in hypomimia, bradykinesia (to lesser degree), and postural stability. She is tolerating doses thus far without any dose-limiting SE. As such we will increase to carbidopa-levodopa 3.5 tabs TID to assess for further benefit while monitoring for interval SE. We will also refer to PT for gait/balanc training to add to her upcoming PT for arthritis. Parkinson disease (PD) is a chronic, progressive disorder caused by degenerative loss of dopaminergic neurons in the brain and usually presenting with a combination of bradykinesia, rest tremor, rigidity, and postural instability. The diagnosis of PD remains clinical and based on the clinician's ability to recognize its characteristic signs and associated symptoms. In the case of Ms. Hernandez, she currently meets clinical diagnostic criteria for PD as she has the presence of bradykinesia plus tremor and rigidity, as well as supportive criteria such as rest tremor and some evidence of levodopa responsiveness. Additionally, she has no evidence of red flags or absolute exclusion criteria. Although we have a high suspicion for Parkinson's disease, we discussed that it would be helpful to continue her on and titrate levodopa to better assess this diagnosis. We also discussed that final diagnosis is only made through neuropathology. Recommendations: Increase levodopa/carbidopa to 3.5 tabs TID PT referral for gait/balance training, strength and stretching Consider starting gabapentin for RLS and checking iron studies/fasting ferritin if remains exacerbated compared to baseline in coming weeks Follow-up as scheduled with Dr. Anuel Valverde in September 2024, then with me 6 months thereafter (sooner prn) S/P ablation of atrial fibrillation 05/07/2024 Class 1 obesity due to exces s calories with serious comorbidity and body mass index (BMI) of 30.0 to 30.9 in adult 03/02/2024 Assessment & Plan (03/02/2024 1:28 PM PRESS BRAKE OPERATOR): Exercise 5 days a week, 30 mins per day recommended. Eat a heart healthy diet consisting of good, healthy protein (eggs, nuts, peanut butter, chicken, fish, turkey, less pork/beef), lots of vegetables, less carbohydrates and less sugar. Anticoagulation management encounter 11/20/2023 Encounter for monitoring sotalol therapy 024 Typical atrial flutter 11/05/2023 Atrial fibrillation 11/05/2023 Assessment & Plan (03/02/2024 1:25 PM PRESS BRAKE OPERATOR): s/p catheter ablation 01/08/24. Palpitations currently resolved. Follow up with Cardiology. Continue Eliquis and sotalol per Cardiology. Other thrombophilia 11/05/2023 Assessment & Plan (03/02/2024 1:27 PM PRESS BRAKE OPERATOR): Chronic mildly elevated hemoglobin hematocrit. Monitor. Chronic bilateral low back pain without sciatica 11/13/2022 Assessment & Plan (03/02/2024 1:26 PM PRESS BRAKE OPERATOR): Chronic. Stable but constant. Follow up with pain management to discuss further injections or nerve pain medication Assessment & Plan (01/30/2023 1:03 PM CDT): Chronic, persistent/not well controlled Will place a referral to pain management Will start lidoderm patches Continue supportive care Update me with any concerns Low bone mass 11/16/2020 Assessment & Plan (03/02/2024 1:26 PM PRESS BRAKE OPERATOR): Chronic. Stable. Continue vitamin-D and calcium supplement Assessment & Plan (01/30/2023 1:04 PM CDT): Chronic, stable Continue calcium/vitamin d Assessment & Plan (01/18/2022 7:46 AM CDT): Bone density order Further guidance once we have results Continue calcium and vitamin-D Assessment & Plan (11/16/2020 9:14 AM CDT): Continue calcium, vitamin d Continue walking for activity Palpitations 10/05/2019 Assessment & Plan (01/30/2023 1:05 PM CDT): Chronic, stable Managed by cardiology Continue to monitor Assessment & Plan (01/18/2022 8:05 AM CDT): Chronic, stable Continue to follow with cardiology Assessment & Plan (11/16/2020 9:14 AM CDT): Continue to monitor Continue to follow with cardiology Hyperlipidemia 04/29/2019 Assessment & Plan (03/02/2024 1:26 PM PRESS BRAKE OPERATOR): Chronic. Stable. Per Cardiology no statin needed at this time. Monitor Assessment & Plan (01/30/2023 1:03 PM CDT): Chronic, stable Managed by cardiology Continue healthy changes Assessment & Plan (01/18/2022 7:45 AM CDT): Chronic, stable Continue healthy lifestyle changes Assessment & Plan (11/16/2020 9:13 AM CDT): CVD score 6.2% Continue to work on healthy changes for her diet Recheck in 1 year Assessment & Plan (04/29/2019 12:28 PM PRESS BRAKE OPERATOR): Recheck labs, scanned in old labs. Ratio 3.3 Encounter for Medicare annual wellness exam 03/31 Overview (03/02/2024): Encouraged healthy diet and activity Pt has a living will Health Maintenance: Last mammogram: 22. 04/22- wnl, ordered Last DEXA: 06/10/2019, 06/20-low bone mass Last colonoscopy: 12/2013-repeat in 10 years Last Tdap: 2013, encouraged Last pneumonia: up to date Last Shingrix: up to date Last Flu: up to date Last COVID: Reviewed booster Last RSV: up to date Assessment & Plan (03/02/2024 1:26 PM PRESS BRAKE OPERATOR): Health Maintenance: 03/02/24 Last mammogram: 22. 04/22- wnl, ordered Last DEXA: 06/10/2019, 06/20-low bone mass Last colonoscopy: 12/2013-repeat in 10 years Last Tdap: 2013, encouraged Last pneumonia: up to date Last Shingrix: up to date Last Flu: up to date Last COVID: Reviewed booster Last RSV: up to date Assessment & Plan (01/30/2023 1:01 PM CDT): Encouraged healthy diet and activity Pt has a living will Health Maintenance: Last mammogram: 22. 04/22- WNL Last DEXA: 06/10/2019, 06/20-low bone mass-ordered Last colonoscopy: 12/2013-repeat in 10 years Last Tdap: 2013 Last pneumonia: up to date Last Shingrix: up to date Last Flu: up to date Last COVID: Reviewed booster Last RSV: encouraged Assessment & Plan (01/18/2022 7:55 AM CDT): Encouraged healthy diet and activity Wear sun screen, seat belts Health Maintenance: Last mammogram: ordered Last DEXA: 06/10/2019-low bone mass-ordered Last colonoscopy: 12/2013-repeat in 10 years Last Tdap: 2013 Last pneumonia: up to date Last Shingrix: completed zostavax, one shingles vaccines Last Flu: up to date Last COVID: Reviewed booster Assessment & Plan (11/16/2020 9:10 AM CDT): Encouraged healthy diet and activity Wear sun screen, seat belts Health Maintenance: Last mammogram: ordered Last DEXA: 06/10/2019-low bone mass Last colonoscopy: 12/2013-repeat in 10 years Last Tdap: 2013 Last pneumonia/Prevnar: due Last Shingrix: completed zostavax, one shingles vaccines Last Flu: encouraged Last COVID: up to date: encouraged Assessment & Plan (05/07/2019 10:21 AM PRESS BRAKE OPERATOR): Exercise 5 days a week, 30 mins per day recommended. Eat a heart healthy diet consisting of good, healthy protein (eggs, nuts, peanut butter, chicken, fish, turkey, less pork/beef), lots of vegetables, less carbohydrates and less sugar. Annual physical recommended. Health Maintenance: -PCV13 vaccine: 04/29/2019 -PPSV23 vaccine: after 04/29/2020 -Tdap vaccine: 12/10/2013 -Influenza vaccine: Fall 2018 -Shingles vaccine: 12/10/2013 (zostervax) due for shingrix -Colonoscopy: 01/07/14 nml repeat 10 years -Last PAP: 03/16/18 nml, neg hpv -Last Mammogram: 04/20/18 nml -Last DEXA:unsure when -Last eye exam: dec 2018 -Last MHA: feb 2018 Resolved Problems Problem Noted Date Diagnosed Date Resolved Date Overweight (BMI 25.0-29.9) 07/16/2019 1 05/03/2023 Assessment & Plan (01/20/2024 3:22 PM CDT): BMI Follow-up includes: education provided. Assessment & Plan (01/30/2023 1:04 PM CDT): Chronic, stable through the fall BMI Follow-up includes: nutrition counseling. Assessment & Plan (01/18/2022 7:47 AM CDT): BMI Follow-up includes: nutrition counseling. Assessment & Plan (11/16/2020 9:14 AM CDT): BMI Follow-up includes: nutrition counseling. Assessment & Plan (07/16/2019 10:32 AM CDT): BMI Follow-up includes: nutrition counseling. Gastroesophageal reflux disease 04/29/2019 04/29/2019 Eczema 04/29/2019 04/29/2019 Encounters Date Type Department Care Team Description 05/24/2024 8:15 AM PRESS BRAKE OPERATOR Office Visit [facility] Cardiology [address] [place] [phone] Nimesh Crespo MD Paroxysmal atrial fibrillation (HCC) (Primary Dx); S/P ablation of atrial fibrillation 05/21/2024 10:00 AM PRESS BRAKE OPERATOR Office Visit [facility] Movement Disorders [address] [facility] [address] [place] [phone] Leslee Negro NP Parkinsonism, unspecified Parkinsonism type (HCC) (Primary Dx); Tremor 05/07/2024 10:30 AM PRESS BRAKE OPERATOR [facility] [address] [facility] [address], [place] [phone] Shelley Fontanez NP Persistent atrial fibrillation (HCC) (Primary Dx); Typical atrial flutter (HCC); S/P ablation of atrial fibrillation; Anticoagulation management encounter 05/07/2024 Telephone [facility] Scheduling [address] [place] [address] ChorimimiaEriklnoza 04/29/2024 Telephone [facility] Family Medicine [address] [place] [phone] Sara Garcia MD Medical Question/Miscellaneou s 03/15/2024 Telephone [facility] Movement Disorders [address] [place] [phone] Saray Goodrich RN from Last 3 Months Immunizations Immunization Administration Dates Next Due COVID-19 mRNA ([employer]) 0.3 m L (30 mcg) vaccine (12 years and up) 12/27/2023,01/03/2023 Hep A, Adult 01/16/2023 Influenza Virus Vaccine Trivalent Mdv 12/27/2023 Influenza, Quad, Adjuvantate d, Intramuscular 01/26/2021 Influenza, Quadrivalent, Hig h Dose, Preservative Free, Intrr 01/03/2023,12/26/2021,01/20/2020 Influenza, Quadrivalent, Spl it, Preservative Free, Intramuscular 03/16/2018 Influenza, Trivalent, High D ose, Split, Preservative Free, Intramuscular 01/21/2019 Influenza, Unspecified 12/27/2021,01/26/2021 Pfizer SARS-CoV-2 Monovalent Vaccination (12+ Yrs) PURPLE 01/03/2023,01/26/2021,07/03/2020,06/08 Contently Sars-Cov-2 Bivalent V accination (12+ YRS) 02/14/2022 Pneumococcal Conjugate PCV 13 04/29/2019 Pneumococcal Polysaccharide PPV23 11/16/2020 RSV, Bivalent, Protein Subun it Rsvpref, Diluent (Abrysvo) 01/30/2023 Tdap 12/10/2013 Typhoid Inactivated 01/16/2023 ZOSTER LIVE 12/10/2013 ZOSTER Recombinant 01/31/2022,04/29/2019 Surgical History Surgery Date Site/Laterality Comments TONSILECTOMY, ADENOIDECTOMY, BILATERAL MYRINGOTOMY AND TUBES SECTION x3 1984, 1987, 1990 Medical History Medical History Date Comments Palpitations GERD (gastroesophageal reflux disease) 2010 Menstrual problem 1999 Cancer ([facility]) 2020 Parkinson disease ([facility]) 01/18/2024 Family History Medical History Relation Name Comments Hypertension Brother David Hershey Early Father Milbern Hershey Heart failure Father Milbern Hershey Kidney failure Father Milbern Hershey Heart disease Maternal Grandfather Barrington Leung Liver cancer Maternal Grandfather Barrington Lueng Alzheimer's disease Mother Najma Hershey Heart disease Mother Najma Hershey pacemaker Mother Najma Hershey Heart disease Paternal Grandfather Amosn Hershey Sr Heart disease Paternal Grandmother Grandma Hershey Relation Name Status Comments Brother David Hershey Alive Father Jerson [place] Maternal Grandfather Barrington Leung Maternal Grandmother Mother Najma Hershey Paternal Grandfather Jerson Hershey Sr Paternal Grandmother Grandma Hershey Social History Tobacco Use Types Packs/Day Years Used Date Smoking Tobacco: Never Smokeless Tobacco: Never Tobacco Cessation:Counseling Given: Not Answered Alcohol Use Standard Drinks/Week Comments Never 0 (1 standard drink = 0.6 oz pur e alcohol) AUDIT-C Answer Date Recorded Q1: How often do you have a drink containing alcohol? Never 03/02/2024 Q2: How many drinks containi ng alcohol do you have on a typical day when you are drinking? Patient does not drink Q3: How often do you have si x or more drinks on one occasion? Never 03/02/2024 PHQ-2 Answer Date Recorded PHQ-2 Total Score (If total score is 3 or more points, staff should administer the PHQ-9) 0 03/02/2024 PHQ-9 Answer Date Recorded PHQ-9 Total Score 1 03/02/2024 Personal Safety Answer Date Recorded Have you ever been in or are you currently in a harmful physical or emotional relationship or is someone making you feel afraid or unsafe? 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 Not on file Not on file Not o n file Obstetrics History Para Term AB IAB SAB Ectopic Multiple Livin g Live Births 3 Date Outcome GA Total Labor Labor/2nd/3rd Weight Sex Type Anes PTL Sabiha A1 A5 Name Clin Last Filed Vital Signs Vital Sign Reading Time Taken Comments Blood Pressure 110/78 05/24/2024 8:09 AM PRESS BRAKE OPERATOR Pulse 101 05/24/2024 8:09 AM PRESS BRAKE OPERATOR Temperature 36.4 C (97.5 F) 03/02/2024 1:08 PM PRESS BRAKE OPERATOR Respiratory Rate 16 03/02/2024 1:08 PM PRESS BRAKE OPERATOR Oxygen Saturation 99% 05/24/2024 8:09 AM PRESS BRAKE OPERATOR Inhaled Oxygen Concentration - - Weight 76.3 kg (168 lb 3.2 oz) 05/24/2024 8:09 A M PRESS BRAKE OPERATOR Height 160 cm (5' 3 ) 05/24/2024 8:09 AM PRESS BRAKE OPERATOR Body Mass Index 29.8 05/24/2024 8:09 AM PRESS BRAKE OPERATOR Plan of Treatment Health Maintenance Due Date Last Done Comments Hepatitis B Screening 08/07/1973 DTaP/Tdap/Td Vaccine (2 - Td or Tdap) 12/11/2023 12/10/2013 Colon Cancer Screening-Colonoscopy 01/08/2024 01/07/2014 Breast Cancer Screening-Mammogram 06/09/2024 06/10/2023, 05/04/2022, 12/11/2020, Additional history exists Covid-19 Vaccine (2023-2 5 season) 2024 12/27/2023, 01/03/2023, 01/03/2023, Additional history exists Osteoporosis Screening-Bone Density Scan 07/11/2024 07/11/2022, 06/10/2019 Depression Screening 03/02/2025 03/02/2024, 03/02/2024, 01/20/2024, Additional history exists Fall Risk Assessment 03/02/2025 03/02/2024, 01/08/2024, 01/30/2023, Additional history exists Well Visit 65+ 03/02/2025 03/02/2024, 05/2022, 01/30/2023, Additional history exists Colon Cancer Screening-CT Colonography Discontinued 01/07/2014 Colon Cancer Screening-DNA Stool Discontinued 01/08/20 14 Colon Cancer Screening-FIT Discontinued 01/07/2014 Colon Cancer Screening-Sigmoidoscopy Discontinued 01/07/2014 Hepatitis C Screening Completed 10/05/2020 Pneumococcal vaccine 65+ Completed 11/16/2020, 04/02 Zoster Vaccine Completed 01/31/2022, 04/02, 12/10/2013 Influenza Vaccine Completed 12/27/2023, , 12/27/2021, Additional history exists Medical Devices Implanted Type Area Ground Hand Device Identifier Shelf Expiration Date Model / Serial / Lot [employer] Vascade Mvp 6-12fr Venous Closure [id number] - [id number] - [id number] Implanted:Qty: 1 on 01/08/2024 by Elliot Lobo MD at [facility] Collagen [employer] 10/27/2025 [id number] [id number] / [id number] / [id number] [employer] Device Vascular Closure Femoral Artery Bioabsorbable Dual Method Vascade 6-7fr Collagen [id number] - [id number] - [id number] Implanted:Qty: 1 on 01/08/2024 by Elliot Lobo MD at [facility] [employer] 09/29/2025 [id number] [id number] / [id number] 4A / [id number] [employer] Device Closure Vascade Od5 Fr Femoral Artery [id number] - [id number] - [id number] Implanted:Qty: 1 on 01/08/2024 by Elliot Lobo MD at [facility] Collagen [employer] 08/25/2025 [id number] / [id number] / [id number] [employer] System Closure Repair Femoral Artery Suture Mediated Perclose Prostyle 18579-65 - [id number] - [id number] Implanted:Qty: 1 on 01/08/2024 by Elliot Lobo MD at [facility] [employer] 10/28/2025 [id number] / [id number] / [id number] [employer] System Closure Repair Femoral Artery Suture Mediated Perclose Prostyle 27726-67 - [id number] - [id number] Implanted:Qty: 1 on 01/08/2024 by Elliot Lobo MD at [facility] [employer] 10/28/2025 [id number] -[id number] / [id number] / [id number] Procedures Procedure Name Priority Date/Time Associated Diagnosis Comments ECG 12-LEAD Routine 05/07/2024 10:21 AM PRESS BRAKE OPERATOR Persistent atrial fibrillation (HCC) SCREENING MAMMOGRAM BILATERAL W DEEP Schedule Routine, Read Routine (OP Routine) 06/10/2023 12:43 PM CDT Screening mammogram for breast cancer DEXA AXIAL SKELETON BONE DENSITY 1 OR MORE SITES Schedule Routine, Read Routine (OP Routine) 07/11/2022 7:35 AM CDT Postmenopausal status HEPATITIS C ANTIBODY Routine 10/05/2020 11:54 AM CDT Need for hepatitis C screening test COLONOSCOPY Routine 01/07/2014 from Last 3 Months or Most Recently Relevant to Health Maintenance Results * ECG 12 lead (05/07/2024 10:21 AM PRESS BRAKE OPERATOR) Shelley Fontanez NP ECG ORDERABLES Yessi l Result * SCREENING MAMMOGRAM BILATERAL W DEEP (06/10/2023 12:43 PM CDT) Anatomical Region Laterality Modality Breast Bilateral Mammography Impressions 06/10/2023 12:48 PM CDT BI-RADS ATLAS category (overall): 2 - Benign There is no mammographic evidence of malignancy. A 1 year screening mammogram is recommended. The patient has been or will be contacted. We recommend annual screening mammography for women at average risk of breast cancer beginning at age 40, based on guidelines of the [employer] (ACR Practice Parameter for the Performance of Screening and Diagnostic Mammography) and [employer]. For women with and elevated risk of breast cancer, please refer to the ACR Practice Parameter for specific screening recommendations. The patient will be entered into a reminder system with a target due date of 1 year for her next screening exam. Narrative 06/10/2023 12:48 PM CDT SCREENING MAMMOGRAM BILATERAL W DEEP: 06/10/23 The study was acquired using full field digital technology and interpreted from soft copy. 2D digital mammographic views, as well as 3D digital tomosynthesis were performed in the CC and MLO projections. CLINICAL: Screening mammogram for breast cancer. No relevant medical history has been documented for this patient. No known family history of breast cancer. COMPARISONS: 05/04/2022 Screening Mammogram Bilateral W Deep 12/11/2020 Screening Mammogram Bilateral W Deep 06/10/2019 Screening Mammogram Bilateral W Deep BREAST TISSUE: The breasts have scattered areas of fibroglandular density. FINDINGS: There are unchanged benign scattered calcifications in both breasts. No suspicious masses, suspicious calcifications, or other suspicious findings are seen within either breast. There has been no suspicious change. us Sara Garcia MD IM MAMMO PROCEDURE S Final Result * Dexa Axial Skeleton Bone Density 1 or 2 Site (07/11/2022 7:35 AM CDT) Anatomical Region Laterality Modality Body N/A Mammography 07/11/2022 9:55 AM CDT Narrative 07/11/2022 9:56 AM CDT EXAM DESCRIPTION: DEXA AXIAL SKELETON BONE DENSITY 1 OR MORE SITES REASON FOR STUDY: 66 y/o year old F with given history of screening. Ground Hand/Model: [employer] A (S/N [id number]) CLINICAL INFORMATION: Current height: 63.5 inches Maximum height: 66.5 inches Weight: 163.8 pounds Risk factors: Glucocorticoids COMPARISON: 06/10/2019 FINDINGS: AP LUMBAR SPINE L1-L4: Total BMD is 0.899 g/cm2 T-score is -1.3 This is a 5.4% decrease in comparison to prior exam which is statistically significant. LEFT HIP: Total BMD is 0.797 g/cm2 T-score is -1.2 This is a 0.1% increase in comparison to prior exam which is not statistically significant. Femoral neck BMD is 0.669 g/cm2 T-score is -1.6 FRAX: 10 year risk for a major osteoporotic fracture is 15 %, 10 year risk for a hip fracture is 2.5 % IMPRESSION: Low bone mass REFERENCE: Bone mineral density: Normal (T-score above or = -1.0) Low bone mass (T-score between -1.0 and -2.5) replaces the previously used term osteopenia Osteoporosis (T-score = or below -2.5) Medical evaluation for secondary causes of low bone mineral density may be appropriate. FRAX is a World Health Organization validated fracture risk assessment tool that calculates a person's 10 year probability of a major osteoporosis related fracture and hip fracture. According to the National Osteoporosis Foundation guidelines, postmenopausal women and men age 50 or older with low bone mass and a 10 year probability of a major osteoporosis related fracture = or greater than 20% or a 10 year probability of a hip fracture = or greater than 3% should be considered for treatment. For further information, including treatment recommendations, please refer to the 2013 ISCD Official Positions (http://www.iscd.org) and the NOF's Clinician's Guide to Prevention and Treatment of Osteoporosis (http://www.nof.org/professionals/clinical-guidelines) THIS IS AN ELECTRONICALLY VERIFIED FINAL REPORT 07/11/2022 9:56 AM - Electronically signed by Patricia Stewart M.D. TW: Report ID: [id number] Reading Location: [place] [id number] Procedure Note Patricia Stewart MD - 07/11/2022 EXAM DESCRIPTION: DEXA AXIAL SKELETON BONE DENSITY 1 OR MORE SITES REASON FOR STUDY: 66 y/o year old F with given history of screening. Ground Hand/Model: [employer] A (S/N [id number]) CLINICAL INFORMATION: Current height: 63.5 inches Maximum height: 66.5 inches Weight: 163.8 pounds Risk factors: Glucocorticoids COMPARISON: 06/10/2019 FINDINGS: AP LUMBAR SPINE L1-L4: Total BMD is 0.899 g/cm2 T-score is -1.3 This is a 5.4% decrease in comparison to prior exam which is statistically significant. LEFT HIP: Total BMD is 0.797 g/cm2 T-score is -1.2 This is a 0.1% increase in comparison to prior exam which is notstatistically significant. Femoral neck BMD is 0.669 g/cm2 T-score is -1.6 FRAX: 10 year risk for a major osteoporotic fracture is 15 %, 10 year risk for ahip fracture is 2.5 % IMPRESSION: Low bone mass REFERENCE: Bone mineral density: Normal (T-score above or = -1.0) Low bone mass (T-score between -1.0 and -2.5) replaces thepreviously used term osteopenia Osteoporosis (T-score = or below -2.5) Medical evaluation for secondary causes of low bone mineral density may be appropriate. FRAX is a World Health Organization validated fracture risk assessmenttool that calculates a person's 10 year probability of a major osteoporosisrelated fracture and hip fracture. According to the National OsteoporosisFoundation guidelines, postmenopausal women and men age 50 or older with low bonemass and a 10 year probability of a major osteoporosis related fracture = or greater than 20% or a 10 year probability of a hip fracture = or greaterthan 3% should be considered for treatment. For further information, including treatment recommendations, please referto the 2013 ISCD Official Positions (http://www.iscd.org) and the NOF's Clinician's Guide to Prevention and Treatment of Osteoporosis (http://www.nof.org/professionals/clinical-guidelines) THIS IS AN ELECTRONICALLY VERIFIED FINAL REPORT 07/11/2022 9:56 AM - Electronically signed by Patricia Stewart M.D. TW: RIAN Report ID: [id number] Reading Location: [place] [address] us Sara Garcia MD IMG DXA PROCEDURES Final Result * Hepatitis C antibody (10/05/2020 11:54 AM CDT) [facility] Hep C Ab <0.1 0.0 - 0.9 s/co ratio [facility] - Comment: Negative: < 0.8 Indeterminate: 0.8 - 0.9 Positive: > 0.9 The CDC recommends that a positive HCV antibody result be followed up with a HCV Nucleic Acid Amplification test (773635). Blood specimen (specimen) 10/05/2020 11:54 AM CDT 10/05/2020 Narrative [facility] - 10/06/2020 8:13 AM CDT Performed at: [address] [place] [id number] Director Global Strategic Publisher Sales: Liu Alvarez PhD, Phone: [phone] us Sara Garcia MD LAB MICROBIOLOGY - GENERAL ORDERABLES Final Result [facility] - 01 * Colonoscopy (01/07/2014) Anatomical Region Laterality Modality Other us Historical Provider ENDOSCOPY PROCEDURES Yessi l Result from Last 3 Months or Most Recently Relevant to Health Maintenance Insurance [facility] Care Teams Assembler Musical Equipment Relationship Specialty Start Date End Date Citlaly Izaguirre MD [address] [place] [address] PCP - General Family Medicine 05/21/24 Jw Owen MD [address] [place] [address] Consulting Physician Family Medicine 04/16/19
--- OUTSIDE RECORDS SUMMARY | 2024-06-09 00:28 | XMS_ITS | Referral Summary ---
Author Organization [address] Address [address] [address] Care Team Providers Care Can Patcher Name Role Phone Jw Owen MD Unavailable [phone]- [phone] Citlaly Izaguirre MD Primary Care Provider Encounters Date Type Department Care Team Description 05/24/2024 8:15 AM SEWING MACHINE TESTER Office Visit [facility] Cardiology [address] [facility] [address] [place] [address] Nimesh Crespo MD Paroxysmal atrial fibrillation (HCC) (Primary Dx); S/P ablation of atrial fibrillation 05/21/2024 10:00 AM SEWING MACHINE TESTER Office Visit [facility] Movement Disorders [address] [facility] 7th [place] [address] Leslee Negro NP Parkinsonism, unspecified Parkinsonism type (HCC) (Primary Dx); Tremor 05/07/2024 Telephone [facility] Scheduling [address] [place] [address] David Parisioza 05/07/2024 10:30 AM SEWING MACHINE TESTER [facility] [address] [facility] [address], [place] [address] Shelley Fontanez NP Persistent atrial fibrillation (HCC) (Primary Dx); Typical atrial flutter (HCC); S/P ablation of atrial fibrillation; Anticoagulation management encounter 04/29/[address] [facility] Family Medicine [address] [address] Sara Garcia MD Medical Question/Anabella s 03/15/2024 Telephone [facility] Movement Disorders [address] [place] [address] Saray Goodrich RN from Last 3 Months Allergies Active Allergy Reactions Criticality Noted Date [...] 05/21/2024 Assessment & Plan (05/21/2024 10:47 AM SEWING MACHINE TESTER): Mrs. Hernandez is a 68 y.o. woman [...] 03/02/2024 Assessment & Plan (03/02/2024 1:28 PM SEWING MACHINE TESTER): Exercise 5 days a week, 30 mins per day recommended. Eat a heart healthy diet consisting of good, healthy protein (eggs, nuts, peanut butter, chicken, fish, turkey, less pork/beef), lots of vegetables, less carbohydrates and less sugar. Anticoagulation management encounter 11/20/2023 Encounter for monitoring sotalol therapy 024 Typical atrial flutter 11/05/2023 Atrial fibrillation 11/05/2023 Assessment & Plan (03/02/2024 1:25 PM SEWING MACHINE TESTER): s/p catheter ablation 01/08/24. Palpitations currently resolved. Follow up with Cardiology. Continue Eliquis and sotalol per Cardiology. Other thrombophilia 11/05/2023 Assessment & Plan (03/02/2024 1:27 PM SEWING MACHINE TESTER): Chronic mildly elevated hemoglobin hematocrit. Monitor. Chronic bilateral low back pain without sciatica 11/13/2022 Assessment & Plan (03/02/2024 1:26 PM SEWING MACHINE TESTER): Chronic. Stable but constant. Follow up with pain management to discuss further injections or nerve pain medication Assessment & Plan (01/30/2023 1:03 PM CDT): Chronic, persistent/not well controlled Will place a referral to pain management Will start lidoderm patches Continue supportive care Update me with any concerns Low bone mass 11/16/2020 Assessment & Plan (03/02/2024 1:26 PM SEWING MACHINE TESTER): Chronic. Stable. Continue vitamin-D and calcium supplement [...] 04/29/2019 Assessment & Plan (03/02/2024 1:26 PM SEWING MACHINE TESTER): Chronic. Stable. Per Cardiology no statin needed [...] year Assessment & Plan (04/29/2019 12:28 PM SEWING MACHINE TESTER): Recheck labs, scanned in old labs. Ratio 3.3 Encounter for Medicare annual wellness exam 03/31 Overview (03/02/2024): Encouraged healthy diet and activity Pt has a living will Health Maintenance: Last mammogram: 22. 1/- wnl, ordered Last DEXA: 06/10/2019, 06/20-low bone mass Last colonoscopy: 12/2013-repeat in 10 years Last Tdap: 2013, encouraged Last pneumonia: up to date Last Shingrix: up to date Last Flu: up to date Last COVID: Reviewed booster Last RSV: up to date Assessment & Plan (03/02/2024 1:26 PM SEWING MACHINE TESTER): Health Maintenance: 03/02/24 Last mammogram: 22. 04/22- [...] colonoscopy: 12/2013-repeat in 10 years Last Tdap: 2014 Last pneumonia/Prevnar: due Last Shingrix: completed zostavax, one shingles vaccines Last Flu: encouraged Last COVID: up to date: encouraged Assessment & Plan (05/07/2019 10:21 AM SEWING MACHINE TESTER): Exercise 5 days a week, 30 mins [...] reflux disease 04/29/2019 04/29/2019 Eczema 04/29/2019 04/29/2019 Immunizations Immunization Administration Dates Next Due COVID-19 mRNA (TwtBks) 0.3 m L (30 mcg) vaccine (12 years and up) 12/27/2023,01/03/2023 Hep A, Adult 01/16/2023 Influenza Virus Vaccine Trivalent Mdv 12/27/2023 Influenza, Quad, Adjuvantate d, Intramuscular 01/26/2021 Influenza, Quadrivalent, Hig h Dose, Preservative Free, Intrr 01/03/2023,12/26/2021,01/20/2020 Influenza, Quadrivalent, Spl it, Preservative Free, Intramuscular 03/16/2018 Influenza, Trivalent, High D ose, Split, Preservative Free, Intramuscular 01/21/2019 Influenza, Unspecified 12/27/2021,01/26/2021 Loosecubes SARS-CoV-2 Monovalent Vaccination (12+ Yrs) PURPLE 01/03/2023,01/26/2021,07/03/2020,06/08 Loosecubes Sars-Cov-2 Bivalent V accination (12+ YRS) 02/14/2022 Pneumococcal Conjugate PCV 13 04/29/2019 Pneumococcal Polysaccharide PPV23 11/16/2020 RSV, Bivalent, Protein Subun it Rsvpref, Diluent (Abrysvo) 01/30/2023 Tdap 12/10/2013 Typhoid Inactivated 01/16/2023 ZOSTER LIVE 12/10/2013 ZOSTER Recombinant 01/31/2022,04/29/2019 Social History Tobacco Use Types Packs/Day Years [...] on file Legal Sex Female 12:15 PM SEWING MACHINE TESTER Gender Identity Female 07/16/2019 6:42 AM CDT Sexual Orientation Straight 07/16/2019 6: 44 AM CDT 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 Not on file Not on file Not o n file Last Filed Vital Signs Vital Sign Reading Time Taken Comments Blood Pressure 110/78 05/24/2024 8:09 AM SEWING MACHINE TESTER Pulse 101 05/24/2024 8:09 AM SEWING MACHINE TESTER Temperature 36.4 C (97.5 F) 03/02/2024 1:08 PM SEWING MACHINE TESTER Respiratory Rate 16 03/02/2024 1:08 PM SEWING MACHINE TESTER Oxygen Saturation 99% 05/24/2024 8:09 AM SEWING MACHINE TESTER Inhaled Oxygen Concentration - - Weight 76.3 kg (168 lb 3.2 oz) 05/24/2024 8:09 A M SEWING MACHINE TESTER Height 160 cm (5' 3 ) 05/24/2024 8:09 AM SEWING MACHINE TESTER Body Mass Index 29.8 05/24/2024 8:09 AM SEWING MACHINE TESTER Plan of Treatment Not on file Medical Devices Implanted Type Area Roofer Metal Device Identifier Shelf Expiration Date Model / Serial / Lot [employer] Vascade Mvp 6-12fr Venous Closure [id number] - [id number] - [id number] Implanted:Qty: 1 on 01/08/2024 by Elliot Lobo MD at [facility] [employer] 10/27/2025 [id number] [id number] / [id number] / [id number] [employer] Device Vascular Closure Femoral Artery Bioabsorbable Dual Method Vascade 6-7fr Collagen [id number] - [id number] - [id number] Implanted:Qty: 1 on 01/08/2024 by Elliot Lobo MD at [facility] [employer] 09/29/2025 [id number] [id number] / [id number] 4A / [id number] [employer] Device Closure Vascade Od5 Fr Femoral Artery [id number] - [id number] - [id number] Implanted:Qty: 1 on 01/08/2024 by Elliot Lobo MD at [facility] [employer] 08/25/2025 [id number] [id number] / [id number] / [id number] [employer] V[employer] System Closure Repair Femoral Artery Suture Mediated Perclose Prostyle 09357-17 - [id number] - [id number] Implanted:Qty: 1 on 01/08/2024 by Elliot Lobo MD at [facility] [employer] 10/28/2025 [id number] / [id number] / [id number] [employer] System Closure Repair Femoral Artery Suture Mediated Perclose Prostyle 17160-44 - [id number] - [id number] Implanted:Qty: 1 on 01/08/2024 by Elliot Lobo MD at [facility] [employer] 10/28/2025 [id number] -03 / [id number] / [id number] Procedures Procedure Name Priority Date/Time Associated Diagnosis Comments ECG 12-LEAD Routine 05/07/2024 10:21 AM SEWING MACHINE TESTER Persistent atrial fibrillation (HCC) SCREENING MAMMOGRAM BILATERAL [...] * ECG 12 lead (05/07/2024 10:21 AM SEWING MACHINE TESTER) Shelley Fontanez GUIDE TOUR ECG ORDERABLES Yessi briones Result * SCREENING MAMMOGRAM BILATERAL W EDEP (06/10/2023 12:43 PM CDT) Anatomical Region Laterality [...] age 40, based on guidelines of the [place] [employer] (ACR Practice Parameter for the Performance of Screening and Diagnostic Mammography) and [place] [employer]. For women [...] no suspicious change. us Sara Garcia MD IMG MAMMO PROCEDURE S Final Result * Dexa Axial Skeleton Bone Density 1 or 2 Site (07/11/2022 7:35 AM CDT) Anatomical Region Laterality Modality Body N/A Mammography 07/11/2022 9:55 AM CDT Narrative 07/11/2022 9:56 AM CDT EXAM DESCRIPTION: DEXA AXIAL SKELETON BONE DENSITY 1 OR MORE SITES REASON FOR STUDY: 66 y/o year old F with given history of screening. Roofer Metal/Model: BlockScore A (S/N [id number]) CLINICAL INFORMATION: Current height: 63.5 inches Maximum [...] Patricia Stewart M.D. TW: RIAN Report ID: [id number] Reading Location: [id number] Procedure Note Patricia Stewart MD - 07/11/2022 EXAM DESCRIPTION: DEXA AXIAL SKELETON BONE DENSITY 1 OR MORE SITES REASON FOR STUDY: 66 y/o year old F with given history of screening. Roofer Metal/Model: BlockScore A (S/N [id number]) CLINICAL INFORMATION: Current height: 63.5 inches Maximum [...] Electronically signed by Patricia Stewart M.D. TW: TW Report ID: [id number] Reading Location: [place] [address] Sara Garcia MD IMG DXA PROCEDURES Final Result * Hepatitis C antibody (10/05/2020 11:54 AM CDT) [facility] Hep C Ab <0.1 0.0 - 0.9 s/co ratio [facility] - 01 Comment: Negative: < 0.8 Indeterminate: 0.8 - 0.9 Positive: > 0.9 The CDC recommends that a positive HCV antibody result be followed up with a HCV Nucleic Acid Amplification test (718641). Blood specimen (specimen) 10/05/2020 11:54 AM CDT 10/05/2020 Narrative [facility] - 10/06/2020 8:13 AM CDT Performed at: [address] [place] [id number] Cadd Manager: Liu Alvarez PhD, Phone: [phone] Sara Garcia MD LAB MICROBIOLOGY - GENERAL ORDERABLES Final Result [facility] - 01 * Colonoscopy (01/07/2014) Anatomical Region Laterality Modality Other Historical Provider ENDOSCOPY PROCEDURES Yessi l Result from Last 3 Months or Most Recently Relevant to Health Maintenance Insurance [facility] Care Teams Can Patcher Relationship Specialty Start Date End Date Citlaly Izaguirre MD [address] [place] [address] PCP - General Family Medicine 2/21/25 Jw Owen MD [address] [place] [address] Consulting Physician Family Medicine 04/16/19
[2024-06-09 09:07] VITALS: BP 105/86; PULSE 79; RESP 18; TEMP 36.4; O2SAT 100; BMI 29.7
--- NOTE | 2024-06-09 09:24 | WPDANESEPPF ---
Anes - Initial Pre Proc Eval Procedure: Operation Date: 06/09/24 10:30 Proposed Procedures p Screening Colonoscopy - Dm Grimes MD Date/Time: 06/09/24 09:24 Surgeon: Dm Grimes MD Pre Op Diagnosis: screening colon Patient Data Age: 68 Gender: F Height: 1.6 m Weight: 76 kg Last Vital Signs Temp 36.4 C L 06/09/24 09:07 Pulse 79 06/09/24 09:07 Resp 18 06/09/24 09:07 BP 105/86 06/09/24 09:07 Pulse Ox 100 06/09/24 09:07 O2 Del Method Room Air 06/09/24 09:07 Allergies Allergy/AdvReac Type Severity Reaction Status Date / Time cephalexin Allergy Intermediate rash Verified 06/09/24 09:06 codeine AdvReac Mild NAUSEA Verified 06/09/24 09:06 Home Medications ?Medication ?Instructions ?Recorded ?Confirmed ?Type lidocaine 5 % topical patch 1 patch transdermal DAILY PRN pain 10/22/23 05/31/24 History omega-3 fatty acids 1 cap PO DAILY 10/22/23 06/09/24 History apixaban 5 mg tablet (Eliquis) 5 mg PO Q12H 05/31/24 06/09/24 History carbidopa 25 mg-levodopa 100 mg 3.5 tablet PO TID 05/31/24 06/09/24 History tablet Patient hx anesthesia problems: none Family hx anesthesia problems: none Results Review: All pre-operative results and documents have been reviewed as part of the pre-operative evaluation. [facility] Past Medical History Medical History Atrial fibrillation Dx 10/22/23 COVID-19 Surgical History Surgical History (Updated 06/09/24 @ 09:24 by Alfredo Shaikh MD) H/O cardiac radiofrequency ablation History of section History of tonsillectomy Family History Family History Father , at the age of 41 from an [place]. Myocardial infarction Mother Pacemaker Social History Social History Social History: Surrogate medical decision maker: Ruben Hernandez, son. Code status: Full code. Smoking status: Never smoker Alcohol intake: never Substance use: never Substance use type: does not use Do You Feel Safe in your Home?: Yes Lack of Transportation: No Lack of Food: Never True Current Housing: I Have Housing Concerned About Future Housing: No Difficulty Paying Gas/Electric Bills: No Difficulty Paying for Meds: No Currently Unemployed: No Education: Bachelor's Degree Difficulty w/ Childcare or Family Care: No Living arrangements: with family Additional living arrangements comments: The patient lives in [place]. She has 2 daughters and 1 son who are healthy. 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 Spiritual care concerns: No Anes - Eval Final PreProcedure Day of Procedure 06/09/24 09:24 Patient weight: overweight Heart: regular rate and rhythm Lungs: clear to auscultation Airway: Mallampati scale class II Neurological: alert and oriented Last oral intake: >/= 8 hours ASA classification: III Emergent: no Anesthetic plan: proceed Anesthesia type and monitoring: general GIVS and standard monitoring Results Review: All pre-operative results and documents have been reviewed as part of the pre-operative evaluation. Informed Consent: The patient's anesthetic plan and its attendant risks and benefits were discussed with the patient/family/POA. Questions were solicited and answers provided to the satisfaction of the patient/family/POA.
[2024-06-09] MEDS: LACTATED RINGERS 1,000 ML 150 ML IV CONT (09:36)
--- NOTE | 2024-06-09 10:08 | P.HP_ITS ---
History of Present Illness History of Present Illness Consent: Risks, benefits, and alternatives have been discussed and questions answered. Patient agrees to proceed with procedure. Chief complaint: screening colon Narrative: Deirdre Hernandez is a 68 year old female here for screening colonoscopy, last one 10 years ago Review of Systems Review of Systems: All systems reviewed & are unremarkable except as noted in HPI and below PMFSH Past Medical History Medical History (Updated 06/09/24 @ 10:08 by Dm Grimes MD) Colon cancer screening Atrial fibrillation Dx 10/22/23 COVID-19 Surgical History Surgical History (Updated 06/09/24 @ 09:24 by Alfredo Shaikh MD) H/O cardiac radiofrequency ablation History of section History of tonsillectomy Family History Family History Father , at the age of 41 from an [place] Myocardial infarction Mother Pacemaker Social History Social History Social History: Surrogate medical decision maker: Ruben Hernandez, son. Code status: Full code. Smoking status: Never smoker Alcohol intake: never Substance use: never Substance use type: does not use Do You Feel Safe in your Home?: Yes Lack of Transportation: No Lack of Food: Never True Current Housing: I Have Housing Concerned About Future Housing: No Difficulty Paying Gas/Electric Bills: No Difficulty Paying for Meds: No Currently Unemployed: No Education: Bachelor's Degree Difficulty w/ Childcare or Family Care: No Living arrangements: with family Additional living arrangements comments: The patient lives in [place]. She has 2 daughters and 1 son who are healthy. 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 Spiritual care concerns: No Meds Home Medications and Allergies Home Medications ?Medication ?Instructions ?Recorded ?Confirmed ?Type lidocaine 5 % topical patch 1 patch transdermal DAILY PRN pain 10/22/23 05/31/24 History omega-3 fatty acids 1 cap PO DAILY 10/22/23 06/09/24 History apixaban 5 mg tablet (Eliquis) 5 mg PO Q12H 05/31/24 06/09/24 History carbidopa 25 mg-levodopa 100 mg 3.5 tablet PO TID 05/31/24 06/09/24 History tablet Allergies Allergy/AdvReac Type Severity Reaction Status Date / Time cephalexin Allergy Intermediate rash Verified 06/09/24 09:06 codeine AdvReac Mild NAUSEA Verified 06/09/24 09:06 Vital Signs Vital Signs - 24 hr 06/09/24 09:07 Temperature 97.5 F L Pulse Rate 79 Respiratory Rate 18 Blood Pressure 105/86 Pulse Oximetry 100 Oxygen Delivery Room Air Exam Const: General: comfortable and no acute distress HENMT: Face/Nose/Sinus: Normal nares present Eyes: General: appearance normal, both eyes and all related structures Neck: Neck: no JVD Resp: Auscultation: clear to auscultation bilaterally Cardio: Rate: regular rate Rhythm: regular rhythm GI: Inspection: non-distended GI Palp: Yes Soft to palpation Skin: General skin exam: normal color Neuro: General: gait normal Speech: normal speech Extrem: General: normal to inspection Psych: Mental Status: mental status grossly normal Assessment and Plan Assessment and plan (1) Colon cancer screening: Code(s): Z12.11 - Encounter for screening for malignant neoplasm of colon Status: Acute Assessment and Plan: colonoscopy
[2024-06-09 10:33] VITALS: BP 92/42; PULSE 79; RESP 18; O2SAT 96
[2024-06-09 10:43] VITALS: BP 98/52; PULSE 79; RESP 18; O2SAT 98
[2024-06-09 10:53] VITALS: BP 125/67; PULSE 74; RESP 18; O2SAT 99
== END 2024-06-09 11:05 | disposition home or self-care (01) ==
PROVIDERS: PCP Student in an Organized Health Care Education/Training Program; Visit Provider Internal Medicine Gastroenterology
PROC: 0DJD8ZZ Inspection of Lower Intestinal Tract, Via Natural or Artificial Opening Endoscopic (ICD-10-PCS; CPT 45378; principal; 2024-06-09 10:30)
DX: Z12.11 Encounter for screening for malignant neoplasm of colon (principal); D12.2 Benign neoplasm of ascending colon; K63.5 Polyp of colon; D12.8 Benign neoplasm of rectum; K64.8 Other hemorrhoids; K57.30 Diverticulosis of large intestine without perforation or abscess without bleeding; I48.91 Unspecified atrial fibrillation; Z79.01 Long term (current) use of anticoagulants; Z98.890 Other specified postprocedural states; Z86.79 Personal history of other diseases of the circulatory system; Z82.49 Family history of ischemic heart disease and other diseases of the circulatory system
CPT/HCPCS: 45385; 88305; J2704; J7120

== ENCOUNTER 2024-07-02 09:51 | Outpatient (RCR) | payer OTHER, SELFPAY ==
--- NOTE | 2024-07-02 11:04 | PTOPEVDC ---
Assessment and note entered by Conchis Fong, PT Thank you for referring Deirdre Hernandez to [facility].? An evaluation has been completed. No further treatment is needed. Evaluation/Discharge Assessment Status Evaluation/Discharge ICD-10 Condition Codes (PT) Abnormalities of gait and mobility R26.9,Weakness R53.1 Other ICD-10 Condition Codes ( Parkinson's Disease G20.c PT) Onset Mar 2024 Subjective Information feel a little off balance at times; have not had any falls; gradually noticed some changes; diagnosis of Parkinson's in December, but have had shaking in her hands for about 3-4 years. not sure what is going to happen with this new disease and how to help keep it from getting worse. have some issues with standing due to back pain; also have knee pain. 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 Assessment PT Clinical Summary Deirdre has the diagnosis of Parkinson's Disease, with decrease strength and gait. She received this new diagnosis in December. And has not had any falls, but reports feeling unsteady at times with walking. She is independent with her home and self care tasks. 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 Lifestyle is active and walking her dog 20-30 minutes, trying for every day. Medical history includes back and bilateral knee pain. With the evaluation: Guy balance/gait score is 56/56; 5 reps sit/stand time without use of UE is 21 seconds with increase bilateral knee pain; single leg standing R and L is 25-30 seconds; 6 minute walking test distance of 1500', without any breaks; slight decrease in strength of bilateral hip abduction and extension muscles. Testing for balance and mobility were WNL. Education completed for HEP, importance of daily stretching and strengthening exercises, [employer] fitness program that is local and support groups available, on line and in person. She demonstrated a good understanding of education and HEP. Additional therapy is not indicated at this time. She is to continue with her daily exercises and activity progression, monitoring her back and knee pain. Discharge PT. Plan of Care PT Services Indicated No
== END 2024-07-02 11:57 | disposition home or self-care (01) ==
LOC: ANHPT 09:51
PROVIDERS: PCP Student in an Organized Health Care Education/Training Program
DX: G20.C Parkinsonism, unspecified (principal)
CPT/HCPCS: 97110; 97161; 97530